=== PATIENT | female | born 1960 | race Caucasian/White ===

== ENCOUNTER → 2024-04-25 | Outpatient (BNVA) | payer MEDICAID, SELFPAY | END | disposition home or self-care (01) | PROVIDERS: PCP Nurse Practitioner Family; Referring Provider Nurse Practitioner Family; Visit Provider Urology | DX: Z09 Encounter for follow-up examination after completed treatment for conditions other than malignant neoplasm (principal); C55 Malignant neoplasm of uterus, part unspecified; Z92.3 Personal history of irradiation; I10 Essential (primary) hypertension; E03.9 Hypothyroidism, unspecified; E78.00 Pure hypercholesterolemia, unspecified; I48.91 Unspecified atrial fibrillation | CPT/HCPCS: 81003; 99212; G0463 ==

== ENCOUNTER 2024-04-30 02:50 | Emergency (ER) | payer MEDICAID, SELFPAY ==
[2024-04-30 02:54] VITALS: PULSE 61; RESP 18; O2SAT 98
[2024-04-30 02:57] VITALS: BMI 22.2
[2024-04-30 03:06] VITALS: BP 154/85; PULSE 64; RESP 16; TEMP 37.4; O2SAT 97
--- NOTE | 2024-04-30 03:50 | EDNOTE_ITS ---
ED Back Injury Pain RME/HPI General Chief Complaint: Back Pain/Injury Stated Complaint: BACK PAIN Time Seen by Provider: 04/30/24 03:39 Arrival date/time: 04/30/24 02:50 63F with history of papillary thyroid carcinoma s/p thyroidectomy 2018, with subsequent hypothyroidism, uterine cancer s/p hysterectomy and radiation therapy, HTN, afib, seizures, and chronic urinary retention presents to ED lower back pain and muscle tightness w/o fall/trauma. Patient states she also has a known lumbar fx pending specialist referral. Patient also states she's had a few days of dysuria, but denies fevers/chills. Patient had clean UA several days ago with urologist Dr. Muller. Limitations: no limitations Related Data Home Medications ?Medication ?Instructions ?Recorded ?Confirmed atorvastatin 20 mg tablet 20 mg PO HS 05/11/20 04/25/24 alprazolam 0.5 mg tablet (Xanax) 0.5 mg PO BID PRN Anxiety 01/14/23 04/25/24 benztropine 1 mg tablet 1 mg PO TID 01/14/23 04/25/24 levetiracetam 1,000 mg tablet 1,000 mg PO BID 01/14/23 04/25/24 losartan 100 mg tablet 100 mg PO QDAY 01/14/23 04/25/24 lumateperone 42 mg capsule 42 mg PO QDAY 01/14/23 04/25/24 (Caplyta) trazodone 50 mg tablet 50 mg PO HS 01/14/23 04/25/24 levothyroxine 112 mcg tablet 112 mcg PO 1XD 07/19/23 04/25/24 oxybutynin chloride 10 mg 10 mg PO QDAY 04/25/24 04/25/24 tablet,extended release 24 hr Previous Rx's ?Medication ?Instructions ?Recorded ferrous sulfate 325 mg (65 mg 325 mg PO .qod #30 tabs 07/29/23 iron) tablet pantoprazole 40 mg tablet,delayed 40 mg PO BID #60 tabs 08/03/23 release cephalexin 500 mg capsule 500 mg PO BID #6 caps 11/03/23 ciprofloxacin HCl 500 mg tablet 500 mg PO BID 10 days #20 tabs 04/30/24 (Cipro) Allergies Allergy/AdvReac Type Severity Reaction Status Date / Time ampicillin Allergy Severe Hives Verified 04/25/24 13:09 Penicillins Allergy Severe Hives Verified 04/25/24 13:09 Review of Systems Review of Systems Systems Reviewed: All systems reviewed, normal except as documented Constitutional Constitutional: Reports system reviewed and no additional complaints, except as documented, Denies fever(s) and Denies headache(s) ENT Ears, Nose, Mouth, and Throat: Denies disequilibrium and Denies headache(s) Cardiovascular Cardiovascular: Reports system reviewed and no additional complaints, except as documented, Denies chest pain and Denies dyspnea Respiratory Respiratory: Reports system reviewed and no additional complaints, except as do cumented, Denies cough and Denies dyspnea Gastrointestinal Gastrointestinal: Reports system reviewed and no additional complaints, except as documented, Denies abdominal pain, Denies nausea and Denies vomiting Genitourinary Genitourinary: Reports as per HPI and Reports dysuria Musculoskeletal Musculoskeletal: Reports as per HPI and Reports back pain Neurologic Neurologic: Reports system reviewed and no additional complaints, except as documented, Denies confusion, Denies disequilibrium and Denies headache(s) Psychiatric Psychiatric: Denies confusion Past Medical History Past Medical History NEUROLOGIC: Positive Neurological Disorders, Seizures, Epilepsy and Head Trauma CARDIAC: Positive Cardiac Disorders, Atrial Fibrillation, Hypercholesterolemia and Hypertension; Negative Angina or Congestive Heart Failure RESPIRATORY: Positive Asthma; Negative Chronic Obstructive Pulmonary Disease (COPD) GASTROINTESTINAL: Positive Gastrointestinal Disorders and Gall Bladder Disease GENITOURINARY: Negative Genitourinary Disorders or Renal Disease REPRODUCTIVE: Positive Previous Pregnancies; Negative Breast Cancer, Endometriosis or Pelvic Inflammatory Disease MUSCULOSKELETAL: Positive Musculoskeletal Disorders, Osteoporosis and Fractures ENT: Positive Head Trauma ENDOCRINE: Positive Endocrine Disorders and Hypothyroidism; Negative Diabetes Mellitus Type 1 or Diabetes Mellitus Type 2 HEMATOLOGIC: Negative Blood Disorders or Sickle Cell Disease PSYCHO/SOCIAL: Positive Schizophrenia, Bipolar Disorder, Depression and Anxiety OTHER HISTORY: Positive Blood Transfusions (07/30/2023), Radiation Therapy, Chicken Pox, Measles, Clostridium Difficile and Cancer; Negative Autoimmune Disease, Blood Transfusion Reaction, Anesthesia Reactions, Organ Transplant, MRSA or Breast Cancer Family History FAMILY HISTORY: Positive Family Respiratory Disorders, Family Cardiac Disorders and Family Cancer; Negative Family Psychiatric Problems, Family Gastrointestinal Problems, Family Surgery or Family Anesthesia Reaction Surgical History SURGICAL: Positive Thyroidectomy and Hysterectomy; Negative Cardiac Surgery, Endocrine Surgery, Ear Surgery, Abdominal Surgery, Nephrectomy, Joint Replacement, Neurologic Surgery, Mastectomy, Vasectomy or Organ Transplant Social History SMOKING STATUS: Never smoker ED Exam General Limitations: Present no limitations General appearance: Present alert and in no apparent distress Head Head exam: Present atraumatic Eye Eye exam: Present normal appearance, PERRL and EOMI ENT ENT exam: Present normal exam, normal oropharynx and mucous membranes moist Neck Neck exam: Present normal inspection, full ROM and trachea midline Chest Chest inspection: Present normal inspection and symmetric chest wall rise Respiratory Respiratory exam: Present normal lung sounds bilaterally Cardiovascular Cardiovascular exam: Present regular rate, normal rhythm and normal heart sounds Abdominal Exam Abdominal exam: Present soft and normal bowel sounds Extremities Exam Extremities exam: Present normal inspection and full ROM Back Exam Back exam: Present normal inspection and full ROM Neurological Exam Neurological exam: Present alert, oriented X3 and CN II-XII intact Psychiatric Psychiatric exam: Present normal affect and normal mood Skin Skin exam: Present warm, dry, intact and normal color Course Quality Measures none Orders Category Date Time Status Urinalysis, C/S if Indicated Stat Lab 04/30/24 03:45 Completed Urine Culture Stat Lab 04/30/24 03:45 Received CYCLObenzaPRINE [Flexeril] Med 04/30/24 03:39 Discontinued 5 mg PO X1 ONE Ciprofloxacin HCl [Ciprofloxacin] Med 04/30/24 04:35 Discontinued 500 mg PO X1 ONE Ketorolac Inj [Toradol Inj] Med 04/30/24 03:39 Discontinued 30 mg IM X1 ONE cefTRIAXone [Rocephin] 1,000 mg Med 04/30/24 04:18 Discontinued Lidocaine 1% 20 ml [Xylocaine 1% 20 ML] 2.1 ml IM X1 Vital Signs Vital signs: Vital Signs Temperature 99.4 F 04/30/24 03:06 Pulse Rate 64 04/30/24 03:06 Respiratory Rate 16 04/30/24 03:06 Blood Pressure 154/85 H 04/30/24 03:06 Pulse Oximetry (%) 97 04/30/24 03:06 Oxygen Delivery Method Room Air 04/30/24 03:06 O2 at 97% on RA and WNLs Back Pain / Injury MDM Narrative MDM Narrative:: 63F with history of papillary thyroid carcinoma s/p thyroidectomy 2018, with subsequent hypothyroidism, uterine cancer s/p hysterectomy and radiation therapy, HTN, afib, seizures, and chronic urinary retention presents to ED lower back pain and muscle tightness w/o fall/trauma. Patient states she also has a known lumbar fx pending specialist referral. Patient also states she's had a few days of dysuria, but denies fevers/chills. Patient had clean UA several days ago with urologist Dr. Muller. Physical exam reveals no CVA tenderness. Patient is afebrile, calm, and alert. UA suggests UTI. However, no fever and patient is sitting with no apparent distress reading something on her phone. Will cover for Pseudomonas given previously positive UC, albeit back in 2018. Patient data External records reviewed:: [facility] previous records Clinical information provided by:: patient Social determinants that could affect healthcare access:: none Patient has the following chronic illnesses:: history of papillary thyroid carcinoma s/p thyroidectomy 2018, with subsequent hypothyroidism, uterine cancer s/p hysterectomy and radiation therapy, HTN, afib, seizures, and chronic urinary retention How is presenting disease/condition affected by chronic disease/condition?: exacerbated by Evaluation data The following diagnostics were reviewed and interpreted by me:: lab results Lab and/or radiology exams considered but not ordered:: ordered Interpretation Summary: above Medications / Prescriptions Medications or Prescriptions considered but not ordered:: ordered Medication administrations:: Medication Administration History Discontinued Medications Ciprofloxacin (Ciprofloxacin Hcl 250 Mg Tablet) 500 mg PO X1 ONE Stop: 04/30/24 04:36 Ceftriaxone Sodium 1,000 mg/ (Lidocaine HCl 2.1 ml) 0 mg IM X1 ONE Stop: 04/30/24 04:19 Cyclobenzaprine HCl (Cyclobenzaprine 5 Mg Tablet) 5 mg PO X1 ONE Stop: 04/30/24 03:40 Last Admin: 04/30/24 04:03 Dose: 5 mg Documented By: BLAIRE Ketorolac Tromethamine (Ketorolac Inj 60 Mg/2 Ml Vial) 30 mg IM X1 ONE Stop: 04/30/24 03:40 Last Admin: 04/30/24 04:04 Dose: 30 mg Documented By: BLAIRE above Consultations Consultation(s) initiated? (list below): No Diagnosis Differential diagnosis back pain/injury: lumbar radiculopathy, sciatica, strain of lumbar region (fx), renal colic, pyelonephritis, thoracic back pain, AAA, discitis and other (UTI/pyelo) Most likely diagnosis given after review of the tests above:: lumbar fx and UTI Admission Indicated Admission indicated?: not indicated Admission Request Was there a request for admission?: No Disposition Plan Disposition Plan: Discharge Discharge Attestation Discharge Attestation: The patient and all family members were given an opportunity to ask questions and understood the discharge instructions. Discharge instructions specifically effects, indications for sooner follow up or return to the emergency department, and the expected course of current diagnosis. Patient condition: Stable Discharge Plan Plan Patient Disposition: HOME (Self Care) Disposition Comment: Stable Prescriptions/Referrals Prescriptions/Med Rec: New ciprofloxacin HCl [Cipro] 500 mg tablet 500 mg PO BID 10 Days Qty: 20 0RF No Action oxybutynin chloride 10 mg tablet extended release 24hr 10 mg PO QDAY atorvastatin 20 mg Tablet 20 mg PO HS alprazolam [Xanax] 0.5 mg Tablet 0.5 mg PO BID PRN (Reason: Anxiety) levetiracetam 1,000 mg tablet 1,000 mg PO BID trazodone 50 mg tablet 50 mg PO HS Patient Comments: TAKE 1 TABLET BY MOUTH EVERY NIGHT FOR SLEEP benztropine 1 mg tablet 1 mg PO TID Patient Comments: TAKE 1 TABLET BY MOUTH THREE TIMES A DAY losartan 100 mg tablet 100 mg PO QDAY Hold Instructions: Resume on 07/28/23. Resume if average SBP >140 and/or DBP >90 Patient Comments: TAKE 1 TABLET BY MOUTH IN THE MORNING BEFORE MEAL Caplyta 42 mg capsule 42 mg PO QDAY Patient Comments: TAKE 1 CAPSULE BY MOUTH EVERY DAY levothyroxine 112 mcg tablet 112 mcg PO 1XD ferrous sulfate 325 mg (65 mg iron) tablet 325 mg PO .qod Qty: 30 0RF pantoprazole 40 mg tablet,delayed release (DR/EC) 40 mg PO BID Qty: 60 0RF cephalexin 500 mg capsule 500 mg PO BID Qty: 6 0RF Referrals: Demetris Piña FNP [Primary Care Provider] - In 1 week Problem List Clinical Impression: Fracture of lumbar spine, UTI (urinary tract infection) Patient/Caregiver Discharge Instructions Additional Instructions: Please follow-up with PCP within 24-48 hours and return immediately if symptoms worsen. Print Language: Slovenian Stand Alone Forms: Patient Portal Info Letter NICKOLAS/MYNOR Supervising Physician NICKOLAS/MYNOR Supervising Physician: Dr. Richard
[2024-04-30 03:54] LABS: Collection Type, Urine Clean Catch; Squamous Epithelial Cell,Urine 0 /hpf (0-5)
[2024-04-30] MEDS: CYCLObenzaPRINE 5 MG TABLET PO (04:03)
[2024-04-30] MEDS: KETOROLAC INJ 60 MG/2 ML VIAL 30 MG IM (04:04)
[2024-04-30 04:10] LABS: Bacteria,Urine 3+; Bilirubin,Urine Negative (Negative); Blood,Urine 3+ (Negative); Glucose, Urine Negative (Negative); Ketones,Urine Negative (Negative); Leukocyte Esterase,Urine Positive (Negative); Nitrite,Urine Positive (Negative); PH,Urine 6.5 (5.0-7.0); Protein,Urine 3+ (Neg - Trace); RBC,Urine 533 /hpf (0-3); Specific Gravity,Urine 1.013 (1.001-1.035); Urobilinogen,Urine Negative mg/dL (0.0-1.0); WBC,Urine 3570 /hpf (0-5)
[2024-04-30 04:12] LABS: Clarity,Urine Turbid (Clear/Hazy); Color,Urine Yellow (Lt Yel-Yel); Culture Indicated,Urine Yes
[2024-04-30] MEDS: cefTRIAXone 1,000 MG, LIDOCAINE 1% 20 ML 2.1 ML IM (04:44)
[2024-04-30] MEDS: CIPROFLOXACIN HCL 250 MG TABLET 500 MG PO (04:45)
== END 2024-04-30 05:05 | disposition home or self-care (01) ==
PROVIDERS: Physician Assistant; Emergency Provider Emergency Medicine; PCP Nurse Practitioner Family
DX: M84.48XA Pathological fracture, other site, initial encounter for fracture (principal); N39.0 Urinary tract infection, site not specified
CPT/HCPCS: 81001; 87077; 87086; 87186; 96372; 99283; J0696; J1885; J3490; A9270

== ENCOUNTER 2024-05-10 17:59 | Emergency (ER) | payer MEDICAID, SELFPAY ==
[2024-05-10] VITALS (14 sets, daily range): BP systolic 146–199; BP diastolic 87–150; PULSE 80–132; RESP 14–29; TEMP 36.9–37.2; O2SAT 96–100; BMI 20.2
--- NOTE | 2024-05-10 18:20 | PD.EDSEIZ ---
ED Seizures RME/HPI General Chief Complaint: Seizure Stated Complaint: SEIZURES Time Seen by Provider: 05/10/24 18:18 Arrival date/time: 05/10/24 17:59 RME / HPI RME / HPI Narrative: DR. GONZALEZ MAIN ED EVALUATION: 63-year-old male with a history of iron deficiency anemia, seizure disorder, thyroid disease, GERD, high cholesterol, schizophrenia, history of encephalopathy, history of gallbladder disease presenting to the emergency department by ambulance with seizure 1 hour prior to arrival. Patient's been off her Keppra for the last 4 days because she ran out. No recent fevers or trauma.Maintained airway during the seizure and did not bite tongue. Did not urinate on her pants. This is similar to previous seizures in the past. Upon waking denies recent illnesses, fever, chest pain, shortness of breath, back pain, neck pain, paresthesias, weakness, other injuries, or other complaints. MD complaint: seizure Onset (ago): hour(s) Description of Episode: tonic-clonic movement and other (Triggered by strobe lights and the patient was at [employer] and got triggered by the lights in the ceiling) Duration of episode: 2 Witnessed: yes - by bystander Trauma: No Seizure History: known seizure disorder and history of withdrawal seizures Place: other Possible Precipitating Event: other (Likes) Associated symptoms: confusion Treatments prior to arrival: none Commercial Driving History Patient's occupation: None Related Data Home Medications ?Medication ?Instructions ?Recorded ?Confirmed atorvastatin 20 mg tablet 20 mg PO HS 05/11/20 04/25/24 alprazolam 0.5 mg tablet (Xanax) 0.5 mg PO BID PRN Anxiety 01/14/23 04/25/24 benztropine 1 mg tablet 1 mg PO TID 01/14/23 04/25/24 levetiracetam 1,000 mg tablet 1,000 mg PO BID 01/14/23 04/25/24 losartan 100 mg tablet 100 mg PO QDAY 01/14/23 04/25/24 lumateperone 42 mg capsule 42 mg PO QDAY 01/14/23 04/25/24 (Caplyta) trazodone 50 mg tablet 50 mg PO HS 01/14/23 04/25/24 levothyroxine 112 mcg tablet 112 mcg PO 1XD 07/19/23 04/25/24 oxybutynin chloride 10 mg 10 mg PO QDAY 04/25/24 04/25/24 tablet,extended release 24 hr Previous Rx's ?Medication ?Instructions ?Recorded ferrous sulfate 325 mg (65 mg 325 mg PO .qod #30 tabs 07/29/23 iron) tablet pantoprazole 40 mg tablet,delayed 40 mg PO BID #60 tabs 08/03/23 release cephalexin 500 mg capsule 500 mg PO BID #6 caps 11/03/23 levetiracetam 1,000 mg tablet 1,000 mg PO BID 14 days #28 tabs 05/11/24 (Keppra) Allergies Allergy/AdvReac Type Severity Reaction Status Date / Time ampicillin Allergy Severe Hives Verified 04/25/24 13:09 Penicillins Allergy Severe Hives Verified 04/25/24 13:09 Review of Systems Review of Systems Systems Reviewed: All systems reviewed, normal except as documented Narrative Review of Systems: GEN: No fever, no chills, no weight loss EYES: No discharge, no visual changes, no pain HEENT: No ear pain, no congestion, no sore throat PULM: No shortness of breath, no cough, no congestion CV: No chest pain, no dyspnea on exertion, no palpitations GI: No nausea, no vomiting, no diarrhea, no pain, no constipation : No frequency, no urgency and no dysuria MUSC/SKEL: No joint pain, no back pain SKIN: No rash PSYCH: No hallucinations, no depression HEME/LYMPH: No easy bleeding or bruising tendencies NEURO: No weakness, no headache, + seizure Past Medical History Past Medical History NEUROLOGIC: Positive Neurological Disorders, Seizures, Epilepsy and Head Trauma CARDIAC: Positive Cardiac Disorders, Atrial Fibrillation, Hypercholesterolemia and Hypertension RESPIRATORY: Positive Asthma GASTROINTESTINAL: Positive Gastrointestinal Disorders and Gall Bladder Disease REPRODUCTIVE: Positive Previous Pregnancies MUSCULOSKELETAL: Positive Musculoskeletal Disorders, Osteoporosis and Fractures ENT: Positive Head Trauma ENDOCRINE: Positive Endocrine Disorders and Hypothyroidism PSYCHO/SOCIAL: Positive Schizophrenia, Bipolar Disorder, Depression and Anxiety OTHER HISTORY: Positive Blood Transfusions, Radiation Therapy, Chicken Pox, Measles, Clostridium Difficile and Cancer Family History FAMILY HISTORY: Positive Family Respiratory Disorders, Family Cardiac Disorders and Family Cancer Surgical History SURGICAL: Positive Thyroidectomy and Hysterectomy Social History SMOKING STATUS: Never smoker SUBSTANCE USE: does not use ALCOHOL: Never ED Exam Narrative Physical exam: General: Non-toxic, well appearing, in no acute distress, and appears state age and well developed and well nourished. Vital signs: Normal. Head: Normocephalic and atraumatic. Eyes: Aproptotic, extraocular movements intact, and pupils equally round and reactive to light. Nose: Nares without evidence of rhinorrhea. Mouth: No tongue lacerations. Neck: Supple without menigismus without lympadenopathy or tenderness. Heart: Regular rate and rhythm without murmur, gallops, or rubs. Lungs: Clear to auscultation without wheezing, rales, or rhonchi. Abdomen: Soft, nontender, no masses, and not distended. Back: No costovertebral angle tenderness. Neurologic: Alert and oriented to person, place, and time. Cranial nerves 2-12 grossly intact. Sensation to light touch intact in all extremities. Strength 5/5 bilaterally. Negative drift and romberg. No dysdiadochokinesia. Normal finger to nose, heel to franklin, gait, and heel to toe. Gait normal. Extremities: no cyanosis or edema. No trauma. Skin: no rashes, ecchymosis, or lesions. NIH STROKE SCALE 1a. Level of Consciousness (Alert, drowsy, etc) [0 = Alert; 1 = Drowsy; 2 = Stuporous; 3 = Coma] = 0 1b. LOC Questions: (Month, age) [0 = Answers both correctly; 1 = Answers one correctly; 2 = Incorrect] = 0 1c. LOC Commands (Open/ close eyes, make fist/ let go) [0 = Obeys both correctly; 1 = Obeys one correctly; 2 = Incorrect] = 0 2. Best Gaze (Eyes open - patient follows examiner?s finger or face) [0 = Normal; 1 = Partial gaze palsy; 2 = Forced deviation] = 0 3. Visual Cruz (Introduce visual stimulus/ threat to pt?s visual field quadrants) [0 = No visual loss; 1 = Partial Hemianopia; 2 = Complete Hemianopia; 3 = Bilateral Hemianopia (Blind)] = 0 4. Facial Paresis (Show teeth, raise eyebrows and squeeze eyes shut) [0 = Normal; 1 = Minor; 2 = Partial; 3 = Complete] = 0 5a. Left Arm Motor Function (Elevate arm to 90 degrees if patient is sitting, 45 degrees if supine) [0 = No drift; 1 = Drift; 2 = Can?t resist gravity; 3 = No effort against gravity; 4 No movement; X = Untestable (Joint fusion or limb amp)] = 0 5b. Right Arm Motor Function (Elevate arm to 90 degrees if patient is sitting, 45 degrees if supine) [0 = No drift; 1 = Drift; 2 = Can?t resist gravity; 3 = No effort against gravity; 4 = No movement; X = Untestable (Joint fusion or limb amp)] = 0 6a. Left Leg Motor Function (Elevate 30 degrees with patient supine) [0 = No drift; 1 = Drift; 2 = Can?t resist gravity; 3 = No effort against gravity; 4 = No movement; X = Untestable (Joint fusion or limb amp)] = 0 6b.? Right Leg Motor Function (Elevate 30 degrees with patient supine) [0 = No drift; 1 = Drift; 2 = Can?t resist gravity; 3 = No effort against gravity; 4 = No movement; X = Untestable (Joint fusion or limb amp)] = 0 7. Limb Ataxia (Finger-nose, heel down franklin) [0 = No ataxia; 1 = Present in one limb; 2 = Present in two limbs] = 0 8. Sensory (Pin prick to face, arm, trunk, and leg; compare side to side) [0 = Normal; 1 = Partial loss; 2 = Severe loss] = 0 9. Best Language (Name item, describe a picture and read sentences) [0 = No aphasia; 1 = Mild to moderate aphasia; 2 = Severe aphasia; 3 = Mute] = 0 10. Dysarthria (Evaluate speech clarity by patient repeating listed words) [0 = Normal articulation; 1 = Mild to moderate slurring of words; 2 = Near to unintelligible or worse; X = Intubated or other physical barrier] = 0 11. Extinction and Inattention (Use information form prior testing to identify neglect or double simultaneous stimuli testing) [0 = No neglect; 1 = Partial neglect; 2 = Complete neglect] = 0 TOTAL SCORE = 0 Course Course Course Narrative: 2103: Stroke alert initiated. Orders made at this time are congruent stroke protocol. OBSERVATION NOTE: The patient was placed in ED observation care at 05/10/2024 at 2150 hours. The patient was placed in ED observation care, pending MRI in the morning. The patients past medical history, social history, and family history were reviewed. The plan of care will include serial examinations. Quality Measures none Orders Category Date Time Status MRI Screening NOW Care 05/10/24 21:43 Active MRI Screening NOW Care 05/10/24 21:43 Active NIH Stroke Scale now Care 05/10/24 21:03 Active NPO NOW Care 05/10/24 21:03 Active Nurse Swallow Screen x1 Care 05/10/24 21:03 Active Consult to Neurology / Tele-Neurology Routine Cons 05/10/24 21:[address] angio stroke protocol Stat Exams 05/10/24 21:[address] head/brain wo con Stat Exams 05/10/24 18:[address] stroke protocol Stat Exams 05/10/24 21:03 Ordered MR head/brain wo con Stat Exams 05/10/24 Ordered CBC Stat Lab 05/10/24 18:03 Completed CMP [Comprehensive Metabolic Panel] Stat Lab 05/10/24 18:03 Completed Drug Screen,Urine Stat Lab 05/10/24 20:04 Completed Prothrombin Time with INR Stat Lab 05/10/24 21:38 Completed Urinalysis Stat Lab 05/10/24 20:04 Completed Famotidine Inj [Pepcid Inj] Med 05/11/24 04:16 Discontinued 20 mg IVP X1 ONE Ketorolac Inj [Toradol Inj] Med 05/11/24 04:32 Discontinued 30 mg IVP X1 ONE LORazepam [Ativan Inj] Med 05/11/24 04:32 Discontinued 2 mg IVP X1 ONE Ondansetron Inj [Zofran Inj] Med 05/10/24 21:03 Active 4 mg IV Q4HR PRN Sodium Chloride 0.9% 1000 ml [Ns] 1,000 ml Med 05/10/24 21:46 Discontinued IV 999 mls/hr hydrALAZINE INJ [Apresoline Inj] Med 05/10/24 18:25 Discontinued 20 mg IV X1 ONE levETIRAcetam INJ [Keppra Inj] Med 05/10/24 18:24 Discontinued 1,000 mg IVP X1 ONE levETIRAcetam [Keppra] Med 05/11/24 04:35 Discontinued 1,000 mg PO X1 ONE levETIRAcetam [Keppra] Med 05/10/24 21:37 Discontinued 500 mg PO X1 ONE Oxygen Delivery NOW RT 05/10/24 21:03 Active Vital Signs Vital signs: Vital Signs Temperature 99.0 F 05/10/24 18:08 Pulse Rate 97 05/10/24 18:08 Respiratory Rate 18 05/10/24 18:08 Blood Pressure 188/109 H 05/10/24 18:08 Pulse Oximetry (%) 100 05/10/24 18:08 Oxygen Delivery Method Room Air 05/10/24 18:08 Seizure MDM Narrative MDM Narrative:: Differential diagnosis includes seizure disorder, trauma, head bleed, electrolyte abnormality, drug use, exacerbation of her seizures from the external lighting. Discussed with Teleneuro, who reviewed the the CT scan. She does not believe that the patient has any type of pontine symptoms and the CT appears more to have microvascular changes and she does not agree with the fact that this patient has an infarct. Recommends patient can get an additional 500 mg of Keppra, and have the patient follow-up as an outpatient Safety net established and ECG retrieved showing no evidence of STEMI or other acute findings. CT Head is obtained The patient was given strict return precautions and was comfortable with the plan. Return to the ER for headache, fever, difficulty walking, or other concerns. Follow up in your primary care physician?s or neurologist's office within the next 2 to 4 days for reevaluation Jami Cabello am scribing for and in the presence of Dr. Gonzalez. Patient data External records reviewed:: [facility] previous records (Reviewed last ED visit dated 04/30/24, discharged with the following: Fracture of lumbar spine.) Clinical information provided by:: patient and EMS Social determinants that could affect healthcare access:: none Patient has the following chronic illnesses:: Iron deficiency anemia, seizure disorder, thyroid disease, GERD, high cholesterol, schizophrenia, history of encephalopathy, history of gallbladder disease. How is presenting disease/condition affected by chronic disease/condition?: caused by Evaluation data The following diagnostics were reviewed and interpreted by me:: lab results and radiology exam(s) Lab and/or radiology exams considered but not ordered:: none Interpretation Summary: See above under MDM narrative. RADIOLOGY Procedure(s): CT head/brain wo con Accession Number(s): [id number] cc: David Morrell MD; Demetris Piña; Roro Gonzalez MD~ Examination: CT brain head without contrast. 2-D sagittal coronal reconstructions Date and time of exam:May 10, 2024 1904 hrs. Indications: Onset headaches dizziness today post seizure, patient fell, patient found down unconscious on the ground July 18, 2023 CTDI: vol (mGy):43.5 DLP: (mGycm):800 Technique: Multiple CT axial sections of the brain have been obtained, 5 mm slice thickness. Contrast has not been administered. 2-D sagittal, coronal reconstructions have been obtained Low dose protocols were performed. One or more of the following dose reduction techniques were used; automated exposure control, adjustment of the mA and/or KV according to patient size, use of iterative reconstruction technique. Findings: Age indeterminate right brainstem infarcts, pontine level, axial image 63 No significant ventricular enlargement. Intra-axial or extra-axial hemorrhage density is not seen. No mass effect or midline shift Basal cisterns are not remarkable. Fourth ventricle is midline. Cranial vault intact. Posterior right scalp hematoma Impression: Negative for acute hemorrhage, mass effect or midline shift Age indeterminate brainstem infarct Consider brain MRI follow-up, stroke protocol Dictated By: David Morrell MD Medications / Prescriptions Medications or Prescriptions considered but not ordered:: none Medication administrations:: Medication Administration History Ondansetron HCl (Ondansetron Inj 2 Mg/Ml Inj 2 Ml) 4 mg IV Q4HR PRN PRN Reason: NAUSEA OR VOMITING Stop: 06/09/24 21:02 Last Admin: 05/10/24 21:49 Dose: 4 mg Documented By: CHAO Discontinued Medications Famotidine (Famotidine Inj 10 Mg/Ml Vial 2 Ml) 20 mg IVP X1 ONE Stop: 05/11/24 04:17 Last Admin: 05/11/24 04:18 Dose: 20 mg Documented By: MANJEET Hydralazine HCl (Hydralazine Inj 20 Mg/Ml Vial) 20 mg IV X1 ONE Stop: 05/10/24 18:26 Last Admin: 05/10/24 19:21 Dose: 20 mg Documented By: MANJEET Sodium Chloride (Ns) 1,000 mls @ 999 mls/hr IV .Q1H1M ONE Stop: 05/10/24 22:46 Last Infusion: 05/11/24 00:00 Dose: Infused Documented By: Admin: 05/10/24 21:49 Dose: 999 mls/hr Documented By: CHAO Ketorolac Tromethamine (Ketorolac Inj 30 Mg/Ml Vial) 30 mg IVP X1 ONE Stop: 05/11/24 04:33 Last Admin: 05/11/24 04:41 Dose: 30 mg Documented By: MANJEET Levetiracetam (Levetiracetam Inj 100 Mg/Ml Vial 5ml) 1,000 mg IVP X1 ONE Stop: 05/10/24 18:25 Last Admin: 05/10/24 19:12 Dose: 1,000 mg Documented By: MANJEET Levetiracetam (Levetiracetam 250 Mg Tablet) 500 mg PO X1 ONE Stop: 05/10/24 21:38 Last Admin: 05/10/24 21:48 Dose: 500 mg Documented By: CHAO Levetiracetam (Levetiracetam 250 Mg Tablet) 1,000 mg PO X1 ONE Stop: 05/11/24 04:36 Lorazepam (Lorazepam 2 Mg/Ml Vial) 2 mg IVP X1 ONE Stop: 05/11/24 04:33 Last Admin: 05/11/24 04:41 Dose: 2 mg Documented By: MANJEET see above Consultations Consultation(s) initiated? (list below): Yes Consultation #1 (Physician, Specialty, Details): Stroke alert called, for possible abnormal CT interpretation however patient does have normal neuro exam. She is in the 3-hour window. Time: 21:04 Consultation #2 (Physician, Specialty, Details): Discussed with Teleneuro, who reviewed the the CT scan. She does not believe that the patient has any type of pontine symptoms and the CT appears more to have microvascular changes and she does not agree with the fact that this patient has an infarct. Recommends patient can get an additional 500 mg of Keppra, and have the patient follow-up as an outpatient Diagnosis Seizure Differential Diagnosis: other (seizure disorder, trauma, head bleed, electrolyte abnormality, drug use, exacerbation of her seizures from the external lighting) Most likely diagnosis given after review of the tests above:: see below Admission Indicated Admission indicated?: not indicated Admission Request Was there a request for admission?: No Disposition Plan Disposition Plan: other (specify) (Signed out to the next oncoming provider pending MRI in the AM.) Critical Care Time Critical Care Time Critical Care Time: Yes Total Critical Care Time (min.): 30 Attestation: The high probability of sudden, clinically significant deterioration in the patient?s condition required the highest level of my preparedness to intervene urgently. The services I provided to this patient were to treat and/or prevent clinically significant deterioration. Services included the following: chart data review, reviewing nursing notes and/or old charts, documentation time, safety and health consultant collaboration regarding findings and treatment options, medication orders and management, direct patient care, vital sign assessments and ordering, interpreting and reviewing diagnostic studies and lab tests. Aggregate critical care time includes only time during which I was engaged in work directly related to the patient?s care, as described above, whether at bedside or elsewhere in the Emergency Department. It did not include time spent performing other reported procedures or the services of residents, students, nurses or physician assistants. Discharge Plan Plan Patient condition on transfer: Stable Prescriptions/Referrals Prescriptions/Med Rec: New levetiracetam [Keppra] 1,000 mg tablet 1,000 mg PO BID 14 Days Qty: 28 0RF No Action oxybutynin chloride 10 mg tablet extended release 24hr 10 mg PO QDAY atorvastatin 20 mg Tablet 20 mg PO HS alprazolam [Xanax] 0.5 mg Tablet 0.5 mg PO BID PRN (Reason: Anxiety) levetiracetam 1,000 mg tablet 1,000 mg PO BID trazodone 50 mg tablet 50 mg PO HS Patient Comments: TAKE 1 TABLET BY MOUTH EVERY NIGHT FOR SLEEP benztropine 1 mg tablet 1 mg PO TID Patient Comments: TAKE 1 TABLET BY MOUTH THREE TIMES A DAY losartan 100 mg tablet 100 mg PO QDAY Hold Instructions: Resume on 07/28/23. Resume if average SBP >140 and/or DBP >90 Patient Comments: TAKE 1 TABLET BY MOUTH IN THE MORNING BEFORE MEAL Caplyta 42 mg capsule 42 mg PO QDAY Patient Comments: TAKE 1 CAPSULE BY MOUTH EVERY DAY levothyroxine 112 mcg tablet 112 mcg PO 1XD ferrous sulfate 325 mg (65 mg iron) tablet 325 mg PO .qod Qty: 30 0RF pantoprazole 40 mg tablet,delayed release (DR/EC) 40 mg PO BID Qty: 60 0RF cephalexin 500 mg capsule 500 mg PO BID Qty: 6 0RF Problem List Clinical Impression: Seizure disorder, Acute dehydration, Hx of medication noncompliance Patient/Caregiver Discharge Instructions Education Materials: Treating Epilepsy: Medicines, Dehydration Additional Instructions: Please take your seizure medications as directed. Follow-up with your primary care physician as scheduled tomorrow. I have written you dosages for your seizure medication please take as directed. Return to the emergency department worsening symptoms or any other concerns Print Language: British
--- NOTE | 2024-05-10 18:24 | XR_ITS ---
Examination: CT brain head without contrast. 2-D sagittal coronal reconstructions Date and time of exam:May 10, 2024 1904 hrs. Indications: Onset headaches dizziness today post seizure, patient fell, patient found down unconscious on the ground July 18, 2023 CTDI: vol (mGy):43.5 DLP: (mGycm):800 Technique: Multiple CT axial sections of the brain have been obtained, 5 mm slice thickness. Contrast has not been administered. 2-D sagittal, coronal reconstructions have been obtained Low dose protocols were performed. One or more of the following dose reduction techniques were used; automated exposure control, adjustment of the mA and/or KV according to patient size, use of iterative reconstruction technique. Findings: Age indeterminate right brainstem infarcts, pontine level, axial image 63 No significant ventricular enlargement. Intra-axial or extra-axial hemorrhage density is not seen. No mass effect or midline shift Basal cisterns are not remarkable. Fourth ventricle is midline. Cranial vault intact. Posterior right scalp hematoma Impression: Negative for acute hemorrhage, mass effect or midline shift Age indeterminate brainstem infarct Consider brain MRI follow-up, stroke protocol
[2024-05-10 18:50] LABS: Basophils % (Auto) 0 % (0-2.5); Eosinophils # (Auto) 0.1 Thou/mm3 (0.0-0.5); Eosinophils % (Auto) 1 % (0-10); Hematocrit 34.1 % (36.0-46.0); Hemoglobin 12.3 g/dL (12.0-16.0); Immature Granulocytes % (Auto) 0 % (0-0); Immature Granulocytes Auto 0.03 Thou/mm3 (0.00-0.00); Lymphocytes # (Auto) 4.5 Thou/mm3 (1.0-4.8); Lymphocytes % (Auto) 46 % (10-50); Mean Corpuscular HGB Conc 36.1 g/dl (31.0-37.0); Mean Corpuscular Hemoglobin 33.5 pg (25.0-35.0); Mean Corpuscular Volume 93 fL (80-100); Monocytes # (Auto) 0.8 Thou/mm3 (0.0-0.8); Monocytes % (Auto) 8 % (0-12); Neutrophils # (Auto) 4.4 Thou/mm3 (1.8-7.7); Neutrophils % (Auto) 45 % (37-80); Nucleated Red Blood Cell % 0 /100 WBC (0); Platelet Count 297 Thou/mm3 (140-440); RDW Standard Deviation 39.3 fL (36.4-46.3); Red Blood Count 3.67 Miln/mm3 (4.00-5.20); White Blood Count 9.8 Thou/mm3 (3.6-11.0)
[2024-05-10 19:11] LABS: Alanine Aminotransferase 25 U/L (10-49); Albumin, Serum 4.9 gm/dL (3.4-4.8); Alkaline Phosphatase 128 U/L (46-116); Anion Gap 12 (7-16); Aspartate Amino Transferase 28 U/L (0-34); BUN/Creatinine Ratio 11 Ratio (12-20); Bilirubin,Total 0.3 mg/dL (0.3-1.2); Blood Urea Nitrogen 19 mg/dL (9-23); Calcium 9.2 mg/dL (8.3-10.6); Calcium (Corrected) 9.2 mg/dL (8.5-10.1); Carbon Dioxide 18.7 mMol/L (20.0-31.0); Chloride 102 mMol/L (98-107); Creatinine (Component) 1.7 mg/dL (0.6-1.3); Estimated Creatinine Clearance 22.8 mL/min (>60); Globulin 2.5 gm/dL (2.3-3.5); Glucose 107 mg/dL (74-106); Osmolality,Calculated 268 (275-295); Potassium 3.3 mMol/L (3.4-5.1); Sodium 133 mMol/L (136-145); Total Protein 7.4 gm/dL (5.7-8.2); eGFR 33 See Note
[2024-05-10] MEDS: levETIRAcetam INJ 100 MG/ML VIAL 5ML 1000 MG IVP (19:12)
[2024-05-10] MEDS: hydrALAZINE INJ 20 MG/ML VIAL IV (19:21)
[2024-05-10 20:27] LABS: Collection Type, Urine Voided
[2024-05-10 20:47] LABS: Bilirubin,Urine Negative (Negative); Blood,Urine Negative (Negative); Clarity,Urine Turbid (Clear/Hazy); Color,Urine Lt-Yellow (Lt Yel-Yel); Glucose, Urine Trace (Negative); Hyaline Casts,Urine < 1 /hpf (0-1); Ketones,Urine Negative (Negative); Leukocyte Esterase,Urine Positive (Negative); Nitrite,Urine Negative (Negative); Protein,Urine Trace (Neg - Trace); RBC,Urine 5 /hpf (0-3); Specific Gravity,Urine 1.014 (1.001-1.035); Squamous Epithelial Cell,Urine 6 /hpf (0-5); Urobilinogen,Urine Negative mg/dL (0.0-1.0); WBC,Urine 11 /hpf (0-5)
[2024-05-10 20:54] LABS: Amphetamine/Methamp Scrn,U Negative (Negative); Barbiturate Screen,Urine Negative (Negative); Benzodiazepines Screen,Urine Negative (Negative); Benzoylecgonine Screen, Ur Negative (Negative); Fentanyl Screen,Urine Positive (Negative); Opiate Screen,Urine Negative (Negative); THC Screen,Urine Positive (Negative)
--- NOTE | 2024-05-10 21:07 | PC.NURSE ---
stroke alert consult case # [id number]
--- NOTE | 2024-05-10 21:41 | ESCONSULT_ITS ---
Tele Neuro Consultation Consultation Date 05/10/24 Most Recent Vital Signs Last Vital Signs Temp 99.0 F 05/10/24 18:08 Pulse 125 H 05/10/24 20:45 Resp 20 05/10/24 20:45 BP 146/97 H 05/10/24 20:45 Pulse Ox 100 05/10/24 20:45 O2 Del Method Room Air 05/10/24 20:45 Consultation Narrative [facility] Tele[facility]urology Consult [facility] Patient Name:???Ara Tan Date of :???1960 Identification Number:??? Date of Service:???05/10/2024 21:05:24 Diagnosis:?G40.89 - Other seizures Impression/plan: ?Ms. Tan is a 63-year-old female with HLD, seizures on Keppra 1g BID, schizophrenia, and bipolar 1 who presented after a witnessed generalized tonic- clonic seizure in the setting of being without Keppra for several days. ? ?Patient is now back to her baseline with a reassuringly normal neurologic exam. She denies headaches, vision changes, new weakness, numbness, changes in speech, dysarthria, and dysphagia. She denies recent fevers/chills or infectious symptoms. ? ?Patient's presentation most consistent with breakthrough seizure due to missed Keppra. Recommend 1.5 kg Keppra load IV in the ER and prescription for 1g Keppra BID maintenance until she can get a refill from her outpatient neurologist. ? ?[facility] radiology read with age indeterminate infarct of the tho, however, on personal review the ill defined hypodensities of the tho appear more consistent with chronic microvascular changes and patient denies symptoms currently or in the past that would be consistent with a prior pontine infarct. Recommend outpatient neurology follow-up with outpatient MRI brain wo contrast for further characterization. Given no acute symptoms, no further emergent inpatient work-up indicated. Discussed stroke signs and symptoms and when to return to the ER. ? ?Recommend follow-up with PCP within 1 week of discharge and neurology within 2 weeks. Sign Out: ? Discussed with Emergency Department Provider Advanced Imaging:Advanced Imaging Deferred because: Stroke not suspected with clinical presentation and exam Metrics: Last Known Well: 05/10/2024 21:20:14 Dispatch Time: 05/10/2024 21:04:33 Arrival Time: 05/10/2024 17:59:00 Initial Response Time: 05/10/2024 21:07:00Symptoms: seizure. Initial patient interaction: 05/10/2024 21:07:00 NIHSS Assessment Completed: 05/10/2024 21:12:26Patient is not a candidate for Thrombolytic. Thrombolytic Medical Decision: 05/10/2024 21:13:00Patient was not deemed candidate for Thrombolytic because of following reasons: breakthrough seizure. CT head showed no acute hemorrhage or acute core infarct. Primary Provider Notified of Diagnostic Impression and Management Plan on: 21:35:07 History of Present Illness:Patient is a 63 year old Female. Patient was brought by private transportation with symptoms of seizure. Ms. Tan is a 63-year-old female with HLD, seizures on Keppra 1g BID, schizophrenia, and bipolar 1 who presented after a witnessed generalized tonic- clonic seizure. Patient states that she was feeling fine today and she was shopping with her sister. A bystander heard her fall and witnessed her having generalized shaking on the ground. This lasted ~2 minutes and resolved. She is now back to her baseline. She has been out of her Keppra for several days. She denies recent fever/chills, infectious symptoms. No headaches or vision changes. No new weakness, numbness, changes in speech or swallowing. ? Past Medical History: ?Hypertension ?Hyperlipidemia Medications: No Anticoagulant use? No Antiplatelet use Reviewed EMR for current medications Allergies:? Reviewed Social History: Drug Use: No Family History: There is no family history of premature cerebrovascular disease pertinent to this consultation ROS : 14 Points Review of Systems was performed and was negative except mentioned in HPI. Past Surgical History: There Is No Surgical History Contributory To Today?s Visit ? Examination: BP(146/97),?Pulse(125),?Blood Glucose(94) 1A: Level of Consciousness - Alert; keenly responsive?+ 0 1B: Ask Month and Age - Both Questions Right?+ 0 1C: Blink Eyes & Squeeze Hands - Performs Both Tasks?+ 0 2: Test Horizontal Extraocular Movements - Normal?+ 0 3: Test Visual Curz - No Visual Loss?+ 0 4: Test Facial Palsy (Use Grimace if Obtunded) - Normal symmetry?+ 0 5A: Test Left Arm Motor Drift - No Drift for 10 Seconds?+ 0 5B: Test Right Arm Motor Drift - No Drift for 10 Seconds?+ 0 6A: Test Left Leg Motor Drift - No Drift for 5 Seconds?+ 0 6B: Test Right Leg Motor Drift - No Drift for 5 Seconds?+ 0 7: Test Limb Ataxia (FNF/Heel-Jacques) - No Ataxia?+ 0 8: Test Sensation - Normal; No sensory loss?+ 0 9: Test Language/Aphasia - Normal; No aphasia?+ 0 10: Test Dysarthria - Normal?+ 0 11: Test Extinction/Inattention - No abnormality?+ 0 NIHSS Score:?0 Pre-Morbid Modified Maged Scale:2 Points = Slight disability; unable to carry out all previous activities, but able to look after own affairs without assistance Spoke with :?Carlos LINK This consult was conducted in real time using interactive audio and video technology. Patient was informed of the technology being used for this visit and agreed to proceed. Patient located in hospital and provider located at home/office setting. Patient is being evaluated for possible acute neurologic impairment and high probability of imminent or life-threatening deterioration. I spent total of 45 minutes providing care to this patient, including time for face to face visit via telemedicine, review of medical records, imaging studies and discussion of findings with providers, the patient and/or family. Dr Isaura Bloom [facility] For Inpatient follow-up with [facility] physician please call [facility] at . As we are not an outpatient service for any post hospital discharge needs please contact the hospital for assistance. If you have any questions for the [facility] physicians or need to reconsult for clinical or diagnostic changes please contact us via [facility] at . ?
[2024-05-10] MEDS: levETIRAcetam 250 MG TABLET 500 MG PO (21:48)
[2024-05-10] MEDS: ONDANSETRON INJ 2 MG/ML INJ 2 ML 4 MG IV (21:49)
[2024-05-10] MEDS: SODIUM CHLORIDE 0.9% 1000 ML 1,000 ML 999 ML IV (21:49)
[2024-05-10 22:31] LABS: Prothrombin Time 10.9 Seconds (9.0-12.2)
[2024-05-11] VITALS (12 sets, daily range): BP systolic 138–180; BP diastolic 68–116; PULSE 83–120; RESP 16–26; TEMP 36.7–37.7; O2SAT 97–100
[2024-05-11] MEDS: FAMOTIDINE INJ 10 MG/ML VIAL 2 ML 20 MG IVP (04:18)
[2024-05-11] MEDS: KETOROLAC INJ 30 MG/ML VIAL IVP (04:41)
[2024-05-11] MEDS: LORazepam 2 MG/ML VIAL IVP (04:41)
--- NOTE | 2024-05-11 07:06 | PD.EDADDENDU ---
Emergency Room Addendum Addendum Narrative: 0600 Care assumed by previous shift provider. Past medical, surgical, social and family history reviewed. Vitals and home medications reviewed. Results and treatment plan discussed. I will assume the care of the patient at this time and will follow the patient, pending final disposition. Ms. Tan has a history of substance use, and prescription drug use, epilepsy, and psychiatric illness, who presented last night to the emergency department after having a breakthrough seizure. She admits to noncompliance with her Keppra for the last week. Due to her seizure she underwent a stroke alert via the previous shift with head CT showing no acute findings. There was a discrepancy between readings on the brainstem area of the head CT where radiology raises concerns for possible age-indeterminate ischemic area, however through the stroke alert process, teleneurology feels that it is more consistent with microvascular changes and can be followed up with an MRI as an outpatient. Patient was signed over to me pending an MRI. I reviewed these results with the patient, she advises that she sees Dr. Jaimes regularly for his seizures and she should be able to follow-up with Dr. Jaimes as an outpatient and for the possibility of this MRI. Another consideration is the patient does take Xanax regularly, she does also admit to running out of her Xanax in addition to her seizure medicines. On my encounter patient has no abnormal vital signs, no tachycardia, no gross tremors, I do not feel yesterday seizure is due to a benzodiazepine withdrawal. This is more consistent with noncompliance with her antiepileptics. Patient is otherwise resting comfortably, and states she lives in an apartment just a [place] streets down and prefer discharge. At this point I do not feel she needs an MRI in the emergency department and can be discharged to follow-up with her neurologist, Dr Jaimes. We reviewed all all results, analysis, treatment plan and patient was amenable to discharge. Strict return precautions were reviewed and patient was discharged in stable condition.
--- NOTE | 2024-05-11 08:23 | PC.NURSE ---
Pt's daughter, Ike, calld by this RN at this time and notified that pt left a yellow an red ring. Per Ike, will come pick it up soon.
== END 2024-05-11 07:31 | disposition home or self-care (01) ==
PROVIDERS: Emergency Medicine; Emergency Provider Emergency Medicine; PCP Nurse Practitioner Family
DX: G40.909 Epilepsy, unspecified, not intractable, without status epilepticus (principal); T50.906A Underdosing of unspecified drugs, medicaments and biological substances, initial encounter; Z91.148 Patient's other noncompliance with medication regimen for other reason
CPT/HCPCS: 36415; 70450; 80053; 80307; 81001; 85025; 85610; 96361; 96374; 96375; 99291; J0360; J1885; J1953; J2060; J2405; J3490; J7030; A9270

== ENCOUNTER 2024-09-03 23:47 | Emergency (ER) | payer MEDICARE, MEDICAID, SELFPAY ==
[2024-09-03 23:50] VITALS: BMI 19.5
[2024-09-04 00:04] VITALS: BP 159/99; PULSE 68; RESP 18; TEMP 36.9; O2SAT 95
--- NOTE | 2024-09-04 00:13 | PD.EDRME ---
Rapid Medical Screening Exam RME Arrival date/time: 09/03/24 23:47 64 year old female present to ED for c/o ongoing abd pain, diarrhea, worsen today I have greeted and performed a focused initial assessment of this patient. A comprehensive ED assessment and evaluation of the patient, analysis of all test results, and completion of the medical decision making process will be conducted by additional ED providers. Chief Complaint: Abdominal Pain Time Seen by Provider: 09/03/24 23:52 Vital signs: Vital Signs Temperature 98.5 F 09/04/24 00:04 Pulse Rate 68 09/04/24 00:04 Respiratory Rate 18 09/04/24 00:04 Blood Pressure 159/99 H 09/04/24 00:04 Pulse Oximetry (%) 95 09/04/24 00:04 Oxygen Delivery Method Room Air 09/04/24 00:04
[2024-09-04 00:31] LABS: Basophils % (Auto) 0 % (0-2.5); Eosinophils # (Auto) 0.1 Thou/mm3 (0.0-0.5); Eosinophils % (Auto) 1 % (0-10); Hematocrit 33.3 % (36.0-46.0); Hemoglobin 12.2 g/dL (12.0-16.0); Immature Granulocytes % (Auto) 0 % (0-0); Immature Granulocytes Auto 0.01 Thou/mm3 (0.00-0.00); Lymphocytes # (Auto) 1.5 Thou/mm3 (1.0-4.8); Lymphocytes % (Auto) 24 % (10-50); Mean Corpuscular HGB Conc 36.6 g/dl (31.0-37.0); Mean Corpuscular Volume 98 fL (80-100); Monocytes # (Auto) 0.3 Thou/mm3 (0.0-0.8); Monocytes % (Auto) 5 % (0-12); Neutrophils # (Auto) 4.4 Thou/mm3 (1.8-7.7); Neutrophils % (Auto) 70 % (37-80); Nucleated Red Blood Cell % 0 /100 WBC (0); Platelet Count 193 Thou/mm3 (140-440); RDW Standard Deviation 47.3 fL (36.4-46.3); Red Blood Count 3.39 Miln/mm3 (4.00-5.20); White Blood Count 6.3 Thou/mm3 (3.6-11.0)
[2024-09-04] MEDS: HYDROcodone/APAP 5/325 TABLET 1 TAB PO (00:41)
[2024-09-04] MEDS: ONDANSETRON ODT 4 MG TABRAP PO (00:41)
[2024-09-04 00:53] LABS: Alanine Aminotransferase 29 U/L (10-49); Albumin, Serum 4.5 gm/dL (3.4-4.8); Albumin/Globulin Ratio 1.7 (1.2-2.2); Alkaline Phosphatase 124 U/L (46-116); Anion Gap 8 (7-16); Aspartate Amino Transferase 41 U/L (0-34); BUN/Creatinine Ratio 9 Ratio (12-20); Bilirubin,Total 0.9 mg/dL (0.3-1.2); Blood Urea Nitrogen 14 mg/dL (9-23); Calcium 9.6 mg/dL (8.3-10.6); Calcium (Corrected) 9.6 mg/dL (8.5-10.1); Carbon Dioxide 24.6 mMol/L (20.0-31.0); Chloride 104 mMol/L (98-107); Creatinine (Component) 1.5 mg/dL (0.6-1.3); Estimated Creatinine Clearance 26.8 mL/min (>60); Globulin 2.7 gm/dL (2.3-3.5); Glucose 108 mg/dL (74-106); Lipase 38 U/L (12-53); Osmolality,Calculated 275 (275-295); Potassium 3.8 mMol/L (3.4-5.1); Sodium 137 mMol/L (136-145); Total Protein 7.2 gm/dL (5.7-8.2); eGFR 38 See Note
== END 2024-09-04 04:51 | disposition left against medical advice (07) ==
PROVIDERS: Physician Assistant; Emergency Provider Emergency Medicine; PCP Nurse Practitioner Family
DX: R10.9 Unspecified abdominal pain (principal); R19.7 Diarrhea, unspecified; Z53.29 Procedure and treatment not carried out because of patient's decision for other reasons
CPT/HCPCS: 36415; 80053; 83690; 85025; 99281; Q0162; A9270

== ENCOUNTER 2024-09-11 14:45 | Inpatient (IN) | payer MEDICARE, MEDICAID, SELFPAY ==
[2024-09-11 14:50] VITALS: PULSE 60; O2SAT 97; BMI 19.5
--- NOTE | 2024-09-11 15:26 | PD.EDRME ---
Rapid Medical Screening Exam RME Arrival date/time: 09/11/24 14:45 64-year-old female with a history of hyperlipidemia, seizures, hypothyroidism, presents to the emergency room with a chief complaint of generalized cramping throughout her body. Patient states she is having pain and a cramping sensation intermittently throughout the day. Patient states she recently got over multiple days of having diarrhea. I have greeted and performed a focused initial assessment of this patient. A comprehensive ED assessment and evaluation of the patient, analysis of all test results, and completion of the medical decision making process will be conducted by additional ED providers. Chief Complaint: General Adult/Misc Complain Vital signs reviewed by provider: Yes
[2024-09-11 15:34] VITALS: BP 148/88; PULSE 85; RESP 18; TEMP 36.8; O2SAT 96
[2024-09-11 16:10] LABS: Basophils % (Auto) 0 % (0-2.5); Eosinophils % (Auto) 0 % (0-10); Hematocrit 41.5 % (36.0-46.0); Immature Granulocytes % (Auto) 0 % (0-0); Immature Granulocytes Auto 0.04 Thou/mm3 (0.00-0.00); Lymphocytes # (Auto) 3.9 Thou/mm3 (1.0-4.8); Lymphocytes % (Auto) 34 % (10-50); Mean Corpuscular HGB Conc 38.6 g/dl (31.0-37.0); Mean Corpuscular Hemoglobin 35.8 pg (25.0-35.0); Mean Corpuscular Volume 93 fL (80-100); Monocytes # (Auto) 0.7 Thou/mm3 (0.0-0.8); Monocytes % (Auto) 6 % (0-12); Neutrophils # (Auto) 6.9 Thou/mm3 (1.8-7.7); Neutrophils % (Auto) 60 % (37-80); Nucleated Red Blood Cell % 0 /100 WBC (0); Platelet Count 327 Thou/mm3 (140-440); RDW Standard Deviation 43.6 fL (36.4-46.3); Red Blood Count 4.47 Miln/mm3 (4.00-5.20); White Blood Count 11.5 Thou/mm3 (3.6-11.0)
[2024-09-11 16:28] LABS: Alanine Aminotransferase 33 U/L (10-49); Albumin, Serum 5.3 gm/dL (3.4-4.8); Albumin/Globulin Ratio 1.5 (1.2-2.2); Alkaline Phosphatase 127 U/L (46-116); Anion Gap 14 (7-16); Aspartate Amino Transferase 69 U/L (0-34); BUN/Creatinine Ratio 7 Ratio (12-20); Bilirubin,Total 1.3 mg/dL (0.3-1.2); Blood Urea Nitrogen 11 mg/dL (9-23); Calcium 9.7 mg/dL (8.3-10.6); Calcium (Corrected) 9.7 mg/dL (8.5-10.1); Chloride 87 mMol/L (98-107); Creatine Kinase 925 U/L (34-171); Creatinine (Component) 1.5 mg/dL (0.6-1.3); Estimated Creatinine Clearance 26.8 mL/min (>60); Globulin 3.5 gm/dL (2.3-3.5); Glucose 128 mg/dL (74-106); Lipase 32 U/L (12-53); Osmolality,Calculated 254 (275-295); Potassium 4.6 mMol/L (3.4-5.1); Sodium 126 mMol/L (136-145); Total Protein 8.8 gm/dL (5.7-8.2); eGFR 38 See Note
--- NOTE | 2024-09-11 18:55 | PD.EDEXREM ---
ED Extremity Problem RME/HPI General Chief complaint: General Adult/Misc Complain Stated complaint: BODY CRAMPS Time Seen by Provider: 09/11/24 18:21 Arrival date/time: 09/11/24 14:45 RME / HPI RME / HPI Narrative: 09/11/24 14:45 64-year-old female with a history of hyperlipidemia, seizures, hypothyroidism, presents to the emergency room with a chief complaint of generalized cramping throughout her body. Patient states she is having pain and a cramping sensation intermittently throughout the day. Patient states she recently got over multiple days of having diarrhea. I have greeted and performed a focused initial assessment of this patient. A comprehensive ED assessment and evaluation of the patient, analysis of all test results, and completion of the medical decision making process will be conducted by additional ED providers. This section includes all my notes and documentations, including HPI, PE, and ED course. Sp Richard MD HPI: 64-year-old female with a history of hyperlipidemia, seizures, hypothyroidism, presents to the emergency room with a chief complaint of generalized cramping throughout her body. Patient states she is having pain and a cramping sensation intermittently throughout the day. Patient states she recently got over multiple days of having diarrhea. ROS: All negative except as documented in HPI. Physical Exam: General: Alert and oriented. Appearance of malaise noted. Eyes: Conjunctivae and lids clear. ENT: No nasal congestion. Neck: Supple. Heart: RRR. Lungs: No respiratory distress. Good air movement. No rhonchi, wheezing, rales. Abdomen: Soft and nontender. Legs: No clubbing, cyanosis, edema. Skin: Warm and dry. Neuro: Alert and oriented X 3. I reviewed all diagnostic test results. My interpretation of the EKG is sinus rhythm with no acute ST?T changes. My interpretation of the chest x-ray is infiltrates. Blood tests and urine tests remarkable for WBC 11.5, Na 126, CR 1.5, CK 925, TSH > 150, free T4 0.15, and UTI. At this point, diagnoses include hyponatremia, pneumonia, UTI, rhabdomyolysis, hypothyroidism. Treatment here included Zithromax, Rocephin, NS, Toradol, Morphine, and Zofran. Patient remained stable. I discussed the case with our hospitalist. About the presentation and exam and diagnostics and treatments here. And need of further care in the hospital. Will accept the patient. Sp Richard MD Related Data Home Medications ?Medication ?Instructions ?Recorded ?Confirmed atorvastatin 20 mg tablet 20 mg PO HS 05/11/20 04/25/24 alprazolam 0.5 mg tablet (Xanax) 0.5 mg PO BID PRN Anxiety 01/14/23 04/25/24 benztropine 1 mg tablet 1 mg PO TID 01/14/23 04/25/24 levetiracetam 1,000 mg tablet 1,000 mg PO BID 01/14/23 04/25/24 losartan 100 mg tablet 100 mg PO QDAY 01/14/23 04/25/24 Held on 07/25/23. Instructions: Resume on 07/28/23. Resume if average SBP >140 and/or DBP >90 lumateperone 42 mg capsule 42 mg PO QDAY 01/14/23 04/25/24 (Caplyta) trazodone 50 mg tablet 50 mg PO HS 01/14/23 04/25/24 levothyroxine 112 mcg tablet 112 mcg PO 1XD 07/19/23 04/25/24 oxybutynin chloride 10 mg 10 mg PO QDAY 04/25/24 04/25/24 tablet,extended release 24 hr Previous Rx's ?Medication ?Instructions ?Recorded ferrous sulfate 325 mg (65 mg 325 mg PO .qod #30 tabs 07/29/23 iron) tablet pantoprazole 40 mg tablet,delayed 40 mg PO BID #60 tabs 08/03/23 release cephalexin 500 mg capsule 500 mg PO BID #6 caps 11/03/23 Allergies Allergy/AdvReac Type Severity Reaction Status Date / Time ampicillin Allergy Severe Hives Verified 09/03/24 23:56 Penicillins Allergy Severe Hives Verified 09/03/24 23:56 Review of Systems Review of Systems Systems Reviewed: All systems reviewed, normal except as documented Past Medical History Past Medical History NEUROLOGIC: Positive Neurological Disorders, Seizures, Epilepsy and Head Trauma CARDIAC: Positive Cardiac Disorders, Atrial Fibrillation, Hypercholesterolemia and Hypertension; Negative Angina or Congestive Heart Failure RESPIRATORY: Positive Asthma; Negative Chronic Obstructive Pulmonary Disease (COPD) GASTROINTESTINAL: Positive Gastrointestinal Disorders and Gall Bladder Disease GENITOURINARY: Negative Genitourinary Disorders or Renal Disease REPRODUCTIVE: Positive Previous Pregnancies; Negative Breast Cancer, Endometriosis or Pelvic Inflammatory Disease MUSCULOSKELETAL: Positive Musculoskeletal Disorders, Osteoporosis and Fractures ENT: Positive Head Trauma ENDOCRINE: Positive Endocrine Disorders and Hypothyroidism; Negative Diabetes Mellitus Type 1 or Diabetes Mellitus Type 2 HEMATOLOGIC: Negative Blood Disorders or Sickle Cell Disease PSYCHO/SOCIAL: Positive Schizophrenia, Bipolar Disorder, Depression and Anxiety OTHER HISTORY: Positive Blood Transfusions, Radiation Therapy, Chicken Pox, Measles, Clostridium Difficile and Cancer; Negative Autoimmune Disease, Blood Transfusion Reaction, Anesthesia Reactions, Organ Transplant, MRSA or Breast Cancer Family History FAMILY HISTORY: Positive Family Respiratory Disorders, Family Cardiac Disorders and Family Cancer; Negative Family Psychiatric Problems, Family Gastrointestinal Problems, Family Surgery or Family Anesthesia Reaction Surgical History SURGICAL: Positive Thyroidectomy and Hysterectomy; Negative Cardiac Surgery, Endocrine Surgery, Ear Surgery, Abdominal Surgery, Nephrectomy, Joint Replacement, Neurologic Surgery, Mastectomy, Vasectomy or Organ Transplant Social History SMOKING STATUS: Never smoker SUBSTANCE USE: does not use ED Exam Narrative Physical exam: As noted in HPI. Course Course Course Narrative: CXR is ordered for determining the etiology of cough. Quality Measures none Orders Category Date Time Status Admit to Inpatient Status Routine Admission 09/11/24 23:56 Active Patient Condition Routine Admission 09/11/24 23:55 Ordered EKG (ED ONLY) *Do not use* NOW Care 09/11/24 19:24 Completed Notify provider NEEDED Care 09/11/24 23:55 Active Saline [Insert IV] NOW Care 09/11/24 19:23 Active Seizure precautions NEEDED Care 09/11/24 23:56 Active Straight [In and Out Catheter] X1 Care 09/11/24 19:23 Active Diet Cardiac Diet 09/12/24 Breakfast Active EKG (ED Only) Stat Exams 09/11/24 19:24 Draft XR chest 1V portable Stat Exams 09/11/24 19:24 Completed CBC AM DRAW Lab 09/12/24 05:00 Ordered CBC AM DRAW Lab 09/13/24 05:00 Ordered CBC AM DRAW Lab 09/14/24 05:00 Ordered CBC Stat Lab 09/11/24 15:57 Completed CK [Creatine Kinase] Stat Lab 09/11/24 15:57 Completed CMP [Comprehensive Metabolic Panel] Stat Lab 09/11/24 15:57 Completed Comprehensive Metabolic Panel AM DRAW Lab 09/12/24 05:00 Ordered Comprehensive Metabolic Panel AM DRAW Lab 09/13/24 05:00 Ordered Comprehensive Metabolic Panel AM DRAW Lab 09/14/24 05:00 Ordered Drug Screen,Urine Stat Lab 09/11/24 20:38 Completed Free T4 (Free Thyroxine) Stat Lab 09/11/24 19:57 Completed Lipase Stat Lab 09/11/24 15:57 Completed Lipid Panel Routine Lab 09/11/24 23:57 Received Magnesium AM DRAW Lab 09/12/24 05:00 Ordered Magnesium Stat Lab 09/11/24 19:57 Completed Phosphorous AM DRAW Lab 09/12/24 05:00 Ordered TSH [Thyroid Stimulating Hormone] Stat Lab 09/11/24 19:57 Completed Troponin I Stat Lab 09/11/24 19:57 Completed UA [Urinalysis] Stat Lab 09/11/24 20:38 Completed Urine Culture Stat Lab 09/11/24 20:38 Received Acetaminophen Tab [Tylenol Tab] Med 09/11/24 23:55 Active 650 mg PO Q6H PRN Azithromycin Inj [Zithromax Inj] 500 mg Med 09/11/24 22:55 Discontinued Sodium Chloride 0.9% 250 ml [Ns] 250 ml IV X1 Heparin Inj Med 09/12/24 06:00 Active 5,000 unit SC Q8HR Ketorolac Inj [Toradol Inj] Med 09/11/24 19:23 Discontinued 15 mg IVP X1 ONE Morphine Inj Med 09/11/24 19:23 Discontinued 4 mg IVP X1 ONE Ondansetron Inj [Zofran Inj] Med 09/11/24 23:55 Active 4 mg IV Q6H PRN Ondansetron Inj [Zofran Inj] Med 09/11/24 19:23 Discontinued 4 mg IV X1 ONE Senna [Senokot] Med 09/11/24 23:55 Active 1 tab PO QDAY PRN Sodium Chloride 0.9% 1000 ml [Ns] 1,000 ml Med 09/11/24 19:23 Discontinued IV 999 mls/hr cefTRIAXone [Rocephin] 1,000 mg Med 09/11/24 21:50 Discontinued SODIUM CHLORIDE 0.9% (Popper) [Ns 0.9% (P)] 50 ml IV X1 Code Status Routine Oth 09/11/24 23:55 Ordered Oxygen Delivery PRN RT 09/11/24 23:55 Active Vital Signs Vital signs: Vital Signs Temperature 98.2 F 09/11/24 15:34 Pulse Rate 85 09/11/24 15:34 Respiratory Rate 18 09/11/24 15:34 Blood Pressure 148/88 H 09/11/24 15:34 Pulse Oximetry (%) 96 09/11/24 15:34 Oxygen Delivery Method Room Air 09/11/24 15:34 Extremity Problem Patient data External records reviewed:: [facility] previous records (Per chart review, patient was seen here on 05/11/24 for acute dehydration.) Clinical information provided by:: patient Social determinants that could affect healthcare access:: none Patient has the following chronic illnesses:: epilepsy, aFib, HTN How is presenting disease/condition affected by chronic disease/condition?: uneffected by Evaluation data The following diagnostics were reviewed and interpreted by me:: lab results, radiology exam(s) and EKG tracing(s) Lab and/or radiology exams considered but not ordered:: none Interpretation Summary: hyponatremia, pneumonia, UTI, rhabdomyolysis, hypothyroidism Medications / Prescriptions Medications or Prescriptions considered but not ordered:: none Medication administrations:: Medication Administration History Acetaminophen (Acetaminophen 325 Mg Tablet) 650 mg PO Q6H PRN PRN Reason: Fever >100.3 or pain 1-3 Stop: 10/11/24 23:54 Heparin Sodium (Porcine) (Heparin Sod Inj 5000 Unit/Ml Vial) 5,000 unit SC Q8HR QUINTEN Stop: 09/26/24 05:59 Ondansetron HCl (Ondansetron Inj 2 Mg/Ml Inj 2 Ml) 4 mg IV Q6H PRN; Protocol PRN Reason: NAUSEA OR VOMITING Stop: 10/11/24 23:54 Sennosides (Senna Tablet) 1 tab PO QDAY PRN; Protocol PRN Reason: constipation Stop: 10/11/24 23:54 Discontinued Medications Sodium Chloride (Ns) 1,000 mls @ 999 mls/hr IV .Q1H1M ONE Stop: 09/11/24 20:23 Last Admin: 09/11/24 22:40 Dose: 999 mls/hr Documented By: CHERYL Ceftriaxone Sodium 1,000 mg/ (Sodium Chloride) 50 mls @ 100 mls/hr IV X1 ONE Stop: 09/11/24 22:19 Last Admin: 09/11/24 22:39 Dose: 100 mls/hr Documented By: CHERYL Azithromycin 500 mg/ Sodium (Chloride) 250 mls @ 250 mls/hr IV X1 ONE Stop: 09/11/24 23:54 Last Admin: 09/12/24 00:06 Dose: 250 mls/hr Documented By: PINOR Ketorolac Tromethamine (Ketorolac Inj 30 Mg/Ml Vial) 15 mg IVP X1 ONE Stop: 09/11/24 19:24 Last Admin: 09/11/24 22:38 Dose: 15 mg Documented By: PINOR Morphine Sulfate (Morphine Sulf Inj 10 Mg/Ml Vial) 4 mg IVP X1 ONE Stop: 09/11/24 19:24 Last Admin: 09/11/24 22:38 Dose: 4 mg Documented By: PINOR Ondansetron HCl (Ondansetron Inj 2 Mg/Ml Inj 2 Ml) 4 mg IV X1 ONE; Protocol Stop: 09/11/24 19:24 Last Admin: 09/11/24 22:39 Dose: 4 mg Documented By: CHERYL Treatment here from me included Zithromax, Rocephin, NS, Toradol, Morphine, and Zofran. Consultations Consultation(s) initiated? (list below): No Diagnosis Extremity Problem Differential Diagnosis: other ([place], electrolyte abnormalities, dehydration, rhabdomyolysis, UTI, pneumonia, sepsis) Most likely diagnosis given after review of the tests above:: hyponatremia, pneumonia, UTI, rhabdomyolysis, hypothyroidism Admission Indicated Admission indicated?: indicated Explain why admission is indicated or not indicated:: hyponatremia, pneumonia, UTI, rhabdomyolysis, hypothyroidism Admission Request Was there a request for admission?: Yes Admission Attestation Admission request attestation: Discussed case with Hospitalist service regarding admission. Discussed patients ED course, exam findings, labs, and radiology results. The Hospitalist [agrees] to accept the patient for admission. Disposition Plan Disposition Plan: Admit Discharge Plan Plan Patient Disposition: Admit Acute Care w/in Hospital Problem List Clinical Impression: Hyponatremia, UTI (urinary tract infection), Rhabdomyolysis, Pneumonia, Hypothyroidism
--- NOTE | 2024-09-11 19:24 | EKG_ITS ---
[facility] Test Date: 2024-09-11 Pat Name: CHANDLER HODGES Department: Room: - Gender: Female Lieutenant/Deputy: : 1960 Requested By: Sp Olvera Order Number: [id number] Reading MD: Sp Olvera Measurements Intervals [place] Rate: 61 P: 30 WY: 138 QRS: 28 QRSD: 81 T: 15 QT: 449 QTc: 453 Interpretive Statements SINUS RHYTHM NONSPECIFIC T-WAVE ABNORMALITY Compared to ECG 08/03/2023 15:43:20 T-wave abnormality now present Short W[place] interval no longer present /store/S0/[id number].pdf
--- NOTE | 2024-09-11 19:24 | XR_ITS ---
Examination: AP chest single view Technique: Portable AP sitting chest single view Exam date and time: September 11, 2024 1941 hrs. Indications: Shortness of breath today. Findings: Mild opacity left base Normal heart size Right lung clear Moderate osteopenia Impression: Suspicious for early pneumonia left base
[2024-09-11 20:25] VITALS: BP 155/113; BP 158/120; PULSE 65; RESP 17; TEMP 37; O2SAT 97
[2024-09-11 20:43] LABS: Collection Type, Urine Clean Catch
[2024-09-11 20:44] LABS: Free T4 (Free Thyroxine) 0.15 ng/dL (0.89-1.76); Magnesium 2.8 mg/dL (1.6-2.6); Thyroid Stimulating Hormone > 150.00 uIU/mL (0.55-4.78); Troponin I < 0.020 ng/mL (0.0-0.045)
[2024-09-11 21:01] LABS: Amphetamine/Methamp Scrn,U Negative (Negative); Bacteria,Urine 3+; Barbiturate Screen,Urine Negative (Negative); Benzodiazepines Screen,Urine Positive (Negative); Benzoylecgonine Screen, Ur Negative (Negative); Bilirubin,Urine Negative (Negative); Blood,Urine 2+ (Negative); Clarity,Urine Turbid (Clear/Hazy); Color,Urine Yellow (Lt Yel-Yel); Fentanyl Screen,Urine Negative (Negative); Glucose, Urine Negative (Negative); Ketones,Urine Trace (Negative); Leukocyte Esterase,Urine Positive (Negative); Nitrite,Urine Negative (Negative); Opiate Screen,Urine Negative (Negative); PH,Urine 6.5 (5.0-7.0); Protein,Urine 2+ (Neg - Trace); RBC,Urine 7 /hpf (0-3); Specific Gravity,Urine 1.019 (1.001-1.035); Squamous Epithelial Cell,Urine < 1 /hpf (0-5); THC Screen,Urine Positive (Negative); Urobilinogen,Urine Negative mg/dL (0.0-1.0); WBC,Urine 808 /hpf (0-5)
[2024-09-11] MEDS: MORPHINE SULF INJ 10 MG/ML VIAL 4 MG IVP (22:38)
[2024-09-11] MEDS: KETOROLAC INJ 30 MG/ML VIAL 15 MG IVP (22:38)
[2024-09-11] MEDS: ONDANSETRON INJ 2 MG/ML INJ 2 ML 4 MG IV (22:39)
[2024-09-11] MEDS: cefTRIAXone 1,000 MG in SODIUM CHLORIDE 0.9% (Popper) 50 ML 100 MG IV (22:39)
[2024-09-11] MEDS: SODIUM CHLORIDE 0.9% 1000 ML 1,000 ML 999 ML IV (22:40)
[2024-09-12] VITALS (15 sets, daily range): BP systolic 141–189; BP diastolic 95–112; PULSE 12–66; RESP 15–95; TEMP 36.4–36.9; O2SAT 94–99; BMI 19.2
[2024-09-12] MEDS: AZITHROMYCIN INJ 500 MG in SODIUM CHLORIDE 0.9% 250 ML 250 ML 250 MG IV (00:06)
--- NOTE | 2024-09-12 00:45 | PD.RESHP ---
Documentation for date of: 09/12/24 HPI History of Present Illness Chief complaint: general weakness History of present illness: The patient is a 63-year-old female with a previous medical history of hypertension, hyperlipidemia, seizure disorder, osteoporosis, thyroid cancer status post thyroidectomy, hypothyroidism who came to the ED due to lower extremity cramps and general weakness. According to her she has been becoming more weak and having cramps in the last few months, but last night her cramps were especially strong and she decided to come to the ED. She also reports that she has been having diarrhea for 2 months and nausea vomiting. Son at the bedside, reports that she became more slow, started to use cane for walking, patient also reports her voice has became coarse as if she has a cold'. When questioned, she reports dry skin, cold sensitivity. She reports that her thyroid medication was discontinued by her primary care practitioner, she does not know the reason and she has not been taking levothyroxine for a while. ED course: Blood pressure 148/88, heart rate 85, afebrile, saturating well on room air, labs were significant for mild leukocytosis 11.5, hemoglobin 16.0, sodium 126, potassium 4.6, BUN 11, creatinine 1.5, magnesium 2.8, T. bili 1.3, AST 69, ALT 33, alkaline phosphatase 127, total creatinine kinase 925, TSH more than 150, free T4 0.15. UA was positive for signs of UTI. U tox is positive for benzodiazepines and marijuana. Chest x-ray: Suspicion for early pneumonia left base. Social history: Does not smoke, drinks alcohol socially once in a few months, smokes marijuana. Home medications: Levetiracetam, propranolol, alprazolam. Patient is going to be admitted due to general weakness secondary to hypothyroidism. Review of Systems Review of Systems Systems Reviewed: All systems reviewed, normal except as documented Past Medical History Past Medical History NEUROLOGIC: Positive Neurological Disorders, Seizures, Epilepsy and Head Trauma CARDIAC: Positive Cardiac Disorders, Atrial Fibrillation, Hypercholesterolemia and Hypertension; Negative Angina or Congestive Heart Failure RESPIRATORY: Positive Asthma; Negative Chronic Obstructive Pulmonary Disease (COPD) GASTROINTESTINAL: Positive Gastrointestinal Disorders and Gall Bladder Disease GENITOURINARY: Negative Genitourinary Disorders or Renal Disease REPRODUCTIVE: Positive Previous Pregnancies; Negative Breast Cancer, Endometriosis or Pelvic Inflammatory Disease MUSCULOSKELETAL: Positive Musculoskeletal Disorders, Osteoporosis and Fractures ENT: Positive Head Trauma ENDOCRINE: Positive Endocrine Disorders and Hypothyroidism; Negative Diabetes Mellitus Type 1 or Diabetes Mellitus Type 2 HEMATOLOGIC: Negative Blood Disorders or Sickle Cell Disease PSYCHO/SOCIAL: Positive Schizophrenia, Bipolar Disorder, Depression and Anxiety OTHER HISTORY: Positive Blood Transfusions, Radiation Therapy, Chicken Pox, Measles, Clostridium Difficile and Cancer; Negative Autoimmune Disease, Blood Transfusion Reaction, Anesthesia Reactions, Organ Transplant, MRSA or Breast Cancer Family History FAMILY HISTORY: Positive Family Respiratory Disorders, Family Cardiac Disorders and Family Cancer; Negative Family Psychiatric Problems, Family Gastrointestinal Problems, Family Surgery or Family Anesthesia Reaction Surgical History SURGICAL: Positive Thyroidectomy and Hysterectomy; Negative Cardiac Surgery, Endocrine Surgery, Ear Surgery, Abdominal Surgery, Nephrectomy, Joint Replacement, Neurologic Surgery, Mastectomy, Vasectomy or Organ Transplant Social History SMOKING STATUS: Never smoker SUBSTANCE USE: does not use Exam Vital Signs Temp Pulse Resp BP Pulse Ox O2 Del Method 98.3 F 55 L 18 189/112 H 96 Room Air 09/12/24 00:18 09/12/24 00:18 09/12/24 00:18 09/12/24 00:18 09/12/24 00:18 09/12/24 00:18 Narrative Exam Physical Exam General: Awake and in no acute distress. Slow speech. General weakness HEENT: Normocephalic, atraumatic, mucous membranes moist. Heart: Regular rate and rhythm, no murmurs. Lungs: Clear to auscultation with no wheezing or crackles. Abdomen: Soft, nondistended, nontender, positive bowel sounds. ?No guarding or rebound tenderness. Neurologic: Alert and oriented x3, general weakness, low tendon reflexes. Extremities: No edema. Skin: No rash or ecchymoses. Dry skin. Results: Labs 09/12/24 04:17 09/12/24 04:17 Labs: Short CBC 09/11/24 Range/Units 15:57 WBC 11.5 H (3.6-11.0) Thou/mm3 Hgb 16.0 (12.0-16.0) g/dL Hct 41.5 (36.0-46.0) % Plt Count 327 D (140-440) Thou/mm3 BMP 09/11/24 15:57 Sodium 126 L Potassium 4.6 Chloride 87 L Carbon Dioxide 25.0 BUN 11 Creatinine 1.5 H Glucose 128 H Calcium 9.7 Cardiac Enzymes 09/11/24 09/11/24 Range/Units 15:57 19:57 Total Creatine Kinase 925 H (34-171) U/L Troponin I < 0.020 (0.0-0.045) ng/mL Liver Function 09/11/24 Range/Units 15:57 Total Bilirubin 1.3 H (0.3-1.2) mg/dL AST 69 H (0-34) U/L ALT 33 (10-49) U/L Alkaline Phosphatase 127 H (46-116) U/L Albumin 5.3 H (3.4-4.8) gm/dL Urine 09/11/24 Range/Units 20:38 Urine Color Yellow (Lt Yel-Yel) Urine Clarity Turbid A (Clear/Hazy) Urine pH 6.5 (5.0-7.0) Ur Specific [place] 1.019 (1.001-1.035) Urine Protein 2+ A (Neg - Trace) Urine Glucose (UA) Negative (Negative) Quality Measures Quality Measures VTE prophylaxis Advance care planning discussed with:: patient Medications Home Medications and Allergies Home Medications ?Medication ?Instructions ?Recorded ?Confirmed ?Type atorvastatin 20 mg tablet 20 mg PO HS 05/11/20 04/25/24 History alprazolam 0.5 mg tablet (Xanax) 0.5 mg PO BID PRN Anxiety 01/14/23 04/25/24 History benztropine 1 mg tablet 1 mg PO TID 01/14/23 04/25/24 History levetiracetam 1,000 mg tablet 1,000 mg PO BID 01/14/23 04/25/24 History losartan 100 mg tablet 100 mg PO QDAY 01/14/23 04/25/24 History Held on 07/25/23. Instructions: Resume on 07/28/23. Resume if average SBP >140 and/or DBP >90 lumateperone 42 mg capsule 42 mg PO QDAY 01/14/23 04/25/24 History (Caplyta) trazodone 50 mg tablet 50 mg PO HS 01/14/23 04/25/24 History levothyroxine 112 mcg tablet 112 mcg PO 1XD 07/19/23 04/25/24 History oxybutynin chloride 10 mg 10 mg PO QDAY 04/25/24 04/25/24 History tablet,extended release 24 hr Allergies Allergy/AdvReac Type Severity Reaction Status Date / Time ampicillin Allergy Severe Hives Verified 09/03/24 23:56 Penicillins Allergy Severe Hives Verified 09/03/24 23:56 Visit Medications Acetaminophen (Acetaminophen 325 Mg Tablet) 650 mg PO Q6H PRN PRN Reason: Fever >100.3 or pain 1-3 Stop: 10/11/24 23:54 Heparin Sodium (Porcine) (Heparin Sod Inj 5000 Unit/Ml Vial) 5,000 unit SC Q8HR QUINTEN Stop: 09/26/24 05:59 Ondansetron HCl (Ondansetron Inj 2 Mg/Ml Inj 2 Ml) 4 mg IV Q6H PRN; Protocol PRN Reason: NAUSEA OR VOMITING Stop: 10/11/24 23:54 Sennosides (Senna Tablet) 1 tab PO QDAY PRN; Protocol PRN Reason: constipation Stop: 10/11/24 23:54 Discontinued Medications Sodium Chloride (Ns) 1,000 mls @ 999 mls/hr IV .Q1H1M ONE Stop: 09/11/24 20:23 Last Admin: 09/11/24 22:40 Dose: 999 mls/hr Ceftriaxone Sodium 1,000 mg/ (Sodium Chloride) 50 mls @ 100 mls/hr IV X1 ONE Stop: 09/11/24 22:19 Last Admin: 09/11/24 22:39 Dose: 100 mls/hr Azithromycin 500 mg/ Sodium (Chloride) 250 mls @ 250 mls/hr IV X1 ONE Stop: 09/11/24 23:54 Last Admin: 09/12/24 00:06 Dose: 250 mls/hr Ketorolac Tromethamine (Ketorolac Inj 30 Mg/Ml Vial) 15 mg IVP X1 ONE Stop: 09/11/24 19:24 Last Admin: 09/11/24 22:38 Dose: 15 mg Morphine Sulfate (Morphine Sulf Inj 10 Mg/Ml Vial) 4 mg IVP X1 ONE Stop: 09/11/24 19:24 Last Admin: 09/11/24 22:38 Dose: 4 mg Ondansetron HCl (Ondansetron Inj 2 Mg/Ml Inj 2 Ml) 4 mg IV X1 ONE; Protocol Stop: 09/11/24 19:24 Last Admin: 09/11/24 22:39 Dose: 4 mg Assessment & Plan Plan The patient is a 63-year-old female with a previous medical history of hypertension, hyperlipidemia, seizure disorder, thyroid cancer status post thyroidectomy, hypothyroidism who came to the ED due to lower extremity cramps and general weakness. Patient is going to be admitted due to general weakness secondary to hypothyroidism. #General weakness #Hypothyroid myopathy #Hypothyroidism #History of thyroid cancer, s/p thyroidectomy Patient has history of thyroid cancer, underwent thyroidectomy. According to the patient she was on levothyroxin previously, but it was discontinued by her PCP for the reasons unknown to the patient. On examination her speech is slow, voice is coarse and tendon reflexes are low. Plan: - levothyroxine 50 mcg daily, adjust dose as needed - Physical therapy #Elevated creatinine kinase Creatine kinase 925, most likely in the setting of hypothyroidism. Plan: - monitor daily CBC #CKD stage III Most likely in the setting of longstanding hypertension Plan: - monitor CBC - BP control #Seizure disorder Stable Plan: - resumed home Keppra #Hypertension Patient reports taking propranolol at home, on charting she has filled prescription for propranolol 60mg. Plan: - med rec is pending - propranolol 20 mg TID #Hyponatremia Moderate hyponatremia. Not symptomatic. Plan: - monitor CMP - encourage oral intake Health maintenance: FEN: cardiac DVT prophylaxis: heparin sc GI prophylaxis: none Dispo: med surg CODE STATUS: Full code Plan of care discussed with attending Dr. Hook. Sofie Stewart MD, PGY 1. Attending Provider Attestation/Addendum 64-year-old lady was admitted for gene his creatinine kinase is elevated. The patient has hypertension, CKD ralized weakness, patient has elevated thyroid TSH. Patient has had thyroidectomy for thyroid cancer. Her creatinine kinase is elevated. Patient is noted to have hyponatremia as well. Discussed with housestaff.
--- NOTE | 2024-09-12 00:55 | PC.NURSE ---
pt states son has med rec. tried calling just now, N/A.
[2024-09-12 01:08] LABS: Cardiac Risk Estimate 1.8 RATIO (3.7-5.6); Cholesterol 162 mg/dL (132-200); HDL Cholesterol 92 mg/dL (40-60); LDL Cholesterol,Calculated 33 mg/dL (0-130); Triglycerides 187 mg/dL (30-150)
[2024-09-12] MEDS: PROPRANOLOL 10 MG TABLET 20 MG PO ×4 (01:40→21:04)
[2024-09-12] MEDS: ONDANSETRON INJ 2 MG/ML INJ 2 ML 4 MG IV ×2 (01:59→12:57)
[2024-09-12] MEDS: HEPARIN SOD INJ 5000 UNIT/ML VIAL SC ×3 (05:11→21:04)
[2024-09-12] MEDS: LEVOTHYROXINE SODIUM 25 MCG TABLET 50 MCG PO (05:11)
[2024-09-12 05:23] LABS: Basophils % (Auto) 0 % (0-2.5); Eosinophils % (Auto) 0 % (0-10); Hematocrit 39.7 % (36.0-46.0); Hemoglobin 14.8 g/dL (12.0-16.0); Immature Granulocytes % (Auto) 0 % (0-0); Immature Granulocytes Auto 0.05 Thou/mm3 (0.00-0.00); Lymphocytes % (Auto) 24 % (10-50); Mean Corpuscular HGB Conc 37.3 g/dl (31.0-37.0); Mean Corpuscular Hemoglobin 35.7 pg (25.0-35.0); Mean Corpuscular Volume 96 fL (80-100); Monocytes % (Auto) 8 % (0-12); Neutrophils # (Auto) 8.2 Thou/mm3 (1.8-7.7); Neutrophils % (Auto) 67 % (37-80); Nucleated Red Blood Cell % 0 /100 WBC (0); Platelet Count 278 Thou/mm3 (140-440); RDW Standard Deviation 45.3 fL (36.4-46.3); Red Blood Count 4.14 Miln/mm3 (4.00-5.20); White Blood Count 12.2 Thou/mm3 (3.6-11.0)
[2024-09-12 06:08] LABS: Alanine Aminotransferase 32 U/L (10-49); Albumin, Serum 4.6 gm/dL (3.4-4.8); Albumin/Globulin Ratio 1.5 (1.2-2.2); Alkaline Phosphatase 113 U/L (46-116); Anion Gap 14 (7-16); Aspartate Amino Transferase 77 U/L (0-34); BUN/Creatinine Ratio 10 Ratio (12-20); Bilirubin,Total 0.9 mg/dL (0.3-1.2); Blood Urea Nitrogen 13 mg/dL (9-23); Calcium 8.7 mg/dL (8.3-10.6); Calcium (Corrected) 8.7 mg/dL (8.5-10.1); Chloride 89 mMol/L (98-107); Creatinine (Component) 1.3 mg/dL (0.6-1.3); Estimated Creatinine Clearance 30.4 mL/min (>60); Glucose 90 mg/dL (74-106); Magnesium 2.4 mg/dL (1.6-2.6); Osmolality,Calculated 259 (275-295); Phosphorous 3.8 mg/dL (2.4-5.1); Potassium 4.2 mMol/L (3.4-5.1); Sodium 129 mMol/L (136-145); Total Protein 7.6 gm/dL (5.7-8.2); eGFR 46 See Note
--- NOTE | 2024-09-12 09:00 | PC.NURSE ---
ATTEMPTED TO DO MED REC, PATIENT STATES HER SON HAS LIST OF ALL HER HOME MEDICATION, STATES HE WILL BRING THEM TOMORROW
[2024-09-12] MEDS: levETIRAcetam 250 MG TABLET 500 MG PO ×2 (09:13→21:04)
[2024-09-12 12:00] LABS: Free T4 (Free Thyroxine) < 0.10 ng/dL (0.89-1.76)
[2024-09-12] MEDS: PANTOPRAZOLE 40 MG TABLET PO (12:57)
[2024-09-12] MEDS: RINGERS LACTATED 1000 ML 1,000 ML 75 ML IV (12:59)
[2024-09-12] MEDS: cefTRIAXone/D5w 1gm IV premix 1 GM/50 ML BAG IV (13:12)
--- NOTE | 2024-09-12 14:09 | PC.PT ---
Patient is safe to ambulate to the bathroom using her cane and with 1 staff assist for safety. RN made aware.
--- NOTE | 2024-09-12 16:10 | PC.CC ---
PASRR Level 1 submitted and downloaded. Meets Level 2 criteria - pending.
--- NOTE | 2024-09-12 17:17 | PD.RESPRO ---
Documentation for date of: 09/12/24 Subjective Subjective Interval history: Patient examined at bedside. Complains of nausea, decreased appetite. States that diarrhea episodes have resolved recently. Mild hyponatremia 129, creatinine 1.3, TSH greater than 150. Continue with levothyroxine 50 mcg. Physical therapy evaluation pending, Started patient on IV Rocephin for UTI. Urine cultures pending Exam Vital Signs Temp Pulse Resp BP Pulse Ox O2 Del Method FiO2 97.7 F 61 18 141/96 H 96 Room Air 55 09/12/24 12:00 09/12/24 15:21 09/12/24 12:00 09/12/24 15:21 09/12/24 12:00 09/12/24 12:00 09/12/24 01:27 Narrative Exam General: elderly lady, Awake and in no acute distress. Moving around in bed HEENT: Normocephalic, atraumatic, mucous membranes dry. Heart: Regular rate and rhythm, no murmurs. Lungs: Clear to auscultation with no wheezing or crackles. Abdomen: Soft, nondistended, nontender, positive bowel sounds. ?No guarding or rebound tenderness. Neurologic: Alert and oriented x3, general weakness, Aox3 Extremities: No edema. Skin: No rash or ecchymoses. Dry skin. Objective Labs 09/13/24 04:39 09/13/24 07:05 Labs: Laboratory Results - last 24 hr 09/11/24 09/11/24 09/12/24 19:57 20:38 00:18 WBC RBC Hgb Hct MCV MCH MCHC RDW Std Deviation Plt Count Neut % (Auto) Lymph % (Auto) [place] % (Auto) Eos % (Auto) Baso % (Auto) Neut # (Auto) Lymph # (Auto) [place] # (Auto) Eos # (Auto) Baso # (Auto) Immature Gran # (Auto) Absolute Nucleated RBC Immature Gran % Nucleated RBC % Sodium Potassium Chloride Carbon Dioxide Anion Gap BUN Creatinine Estim Creat Clear Calc eGFR BUN/Creatinine Ratio Glucose Calculated Osmolality Calcium Corrected Calcium Phosphorus Magnesium 2.8 H Total Bilirubin AST ALT Alkaline Phosphatase Troponin I < 0.020 Total Protein Albumin Globulin Albumin/Globulin Ratio Triglycerides 187 H Cholesterol 162 LDL Cholesterol, Calc 33 HDL Cholesterol 92 H Cholesterol/HDL Ratio 1.8 L TSH > 150.00 H* Free T4 0.15 L Ur Collection Type Clean Catch Urine Color Yellow Urine Clarity Turbid A Urine pH 6.5 Ur Specific Fisher 1.019 Urine Protein 2+ A Urine Glucose (UA) Negative Urine Ketones Trace Urine Blood 2+ A Urine Nitrite Negative Urine Bilirubin Negative Urine Urobilinogen (Auto) Negative Ur Leukocyte Esterase Positive Urine RBC 7 H Urine WBC 808 H Ur Squamous Epith Cells < 1 Urine Bacteria 3+ A Urine Opiates Screen Negative Urine Fentanyl Screen Negative Ur Barbiturates Screen Negative U Amphetamin/Meth Scrn Negative U Benzodiazepines Scrn Positive A U Cocaine Metab Screen Negative U Marijuana (THC) Screen Positive A 09/12/24 04:17 WBC 12.2 H RBC 4.14 Hgb 14.8 Hct 39.7 MCV 96 MCH 35.7 H MCHC 37.3 H RDW Std Deviation 45.3 Plt Count 278 D Neut % (Auto) 67 Lymph % (Auto) 24 [place] % (Auto) 8 Eos % (Auto) 0 Baso % (Auto) 0 Neut # (Auto) 8.2 H Lymph # (Auto) 3.0 [place] # (Auto) 1.0 H Eos # (Auto) 0.0 Baso # (Auto) 0.0 Immature Gran # (Auto) 0.05 H Absolute Nucleated RBC 0.00 Immature Gran % 0 Nucleated RBC % 0 Sodium 129 L Potassium 4.2 Chloride 89 L Carbon Dioxide 26.0 Anion Gap 14 BUN 13 Creatinine 1.3 Estim Creat Clear Calc 30.4 L eGFR 46 L BUN/Creatinine Ratio 10 L Glucose 90 Calculated Osmolality 259 L Calcium 8.7 Corrected Calcium 8.7 Phosphorus 3.8 Magnesium 2.4 Total Bilirubin 0.9 AST 77 H ALT 32 Alkaline Phosphatase 113 Troponin I Total Protein 7.6 Albumin 4.6 D Globulin 3.0 Albumin/Globulin Ratio 1.5 Triglycerides Cholesterol LDL Cholesterol, Calc HDL Cholesterol Cholesterol/HDL Ratio TSH Free T4 < 0.10 L Ur Collection Type Urine Color Urine Clarity Urine pH Ur Specific Fisher Urine Protein Urine Glucose (UA) Urine Ketones Urine Blood Urine Nitrite Urine Bilirubin Urine Urobilinogen (Auto) Ur Leukocyte Esterase Urine RBC Urine WBC Ur Squamous Epith Cells Urine Bacteria Urine Opiates Screen Urine Fentanyl Screen Ur Barbiturates Screen U Amphetamin/Meth Scrn U Benzodiazepines Scrn U Cocaine Metab Screen U Marijuana (THC) Screen Quality Measures Quality Measures VTE prophylaxis Advance care planning discussed with:: patient Assessment & Plan Assessment Current Active Medications: Generic Name Dose Route Start Last Admin Trade Name Freq PRN Reason Stop Dose Admin Acetaminophen 650 mg 09/11/24 23:55 Acetaminophen 325 Mg Tablet PO 10/11/24 23:54 Q6H PRN Fever >100.3 or pain 1-3 Heparin Sodium (Porcine) 5,000 unit 09/12/24 06:00 09/12/24 15:21 Heparin Sod Inj 5000 Unit/Ml Vial SC 09/26/24 05:59 5,000 unit Q8HR QUINTEN Administration Ceftriaxone Sodium/Dextrose 1 gm in 50 mls @ 100 mls/hr 09/12/24 11:09 09/12/24 13:12 Rocephin/D5w 1gm Iv Premix IV 09/19/24 11:08 100 mls/hr QDAY QUINTEN Administration Lactated Ringer's 1,000 mls @ 75 mls/hr 09/12/24 11:10 09/12/24 13:00 Lactated Ringers IV 09/13/24 00:29 0 mls/hr .[id number] QUINTEN Infusion Levetiracetam 500 mg 09/12/24 09:00 09/12/24 09:13 Levetiracetam 250 Mg Tablet PO 10/12/24 08:59 500 mg BID QUINTEN Administration Levothyroxine Sodium 50 mcg 09/12/24 06:00 09/12/24 05:11 Levothyroxine Sodium 25 Mcg Tablet PO 10/12/24 05:59 50 mcg ACBR QUINTEN Administration Ondansetron HCl 4 mg 09/11/24 23:55 09/12/24 12:57 Ondansetron Inj 2 Mg/Ml Inj 2 Ml IV 10/11/24 23:54 4 mg Q6H PRN Administration NAUSEA OR VOMITING Protocol Pantoprazole Sodium 40 mg 09/12/24 12:00 09/12/24 12:57 Pantoprazole 40 Mg Tablet PO 10/12/24 11:59 40 mg QDAY QUINTEN Administration Propranolol HCl 20 mg 09/12/24 01:00 09/12/24 15:21 Propranolol 10 Mg Tablet PO 10/12/24 00:59 20 mg TID QUINTEN Administration Sennosides 1 tab 09/11/24 23:55 Senna Tablet PO 10/11/24 23:54 QDAY PRN constipation Protocol Plan The patient is a 63-year-old female with a previous medical history of hypertension, hyperlipidemia, seizure disorder, thyroid cancer status post thyroidectomy, hypothyroidism who came to the ED due to lower extremity cramps and general weakness. Patient is going to be admitted due to general weakness secondary to hypothyroidism. #Uncomplicated UTI UA Leukocyte esterase positive, urine WBC 800, bacteria 3+ Urine cultures pending ? Started IV ceftriaxone 1 g daily for 7 days (09/12-) #General weakness #Hypothyroid myopathy #Hypothyroidism #History of thyroid cancer, s/p thyroidectomy Multifactorial weakness due to hypothyroidism, decreased oral intake, and diarrhea for past 2 months. According to the patient she was on levothyroxin previously, but it was discontinued by her PCP for the reasons unknown to the patient. Plan: - levothyroxine 50 mcg daily, adjust dose as needed - Physical therapy #Elevated creatinine kinase Creatine kinase 925, most likely in the setting of hypothyroidism. Plan: - monitor daily CBC #CKD stage III Most likely in the setting of longstanding hypertension Plan: - monitor CBC - BP control #Seizure disorder Stable Plan: - resumed home Keppra #Hypertension Patient reports taking propranolol at home, on charting she has filled prescription for propranolol 60mg. Plan: -- propranolol 20 mg TID held #Hyponatremia Moderate hyponatremia. Not symptomatic. Plan: - monitor CMP - encourage oral intake Health maintenance: FEN: cardiac DVT prophylaxis: heparin sc GI prophylaxis: none Dispo: med surg CODE STATUS: Full code The patient's management plan was discussed with my attending physician Dr. Zamarripa. Quita Villasenor, PGY-1 Attending Provider Attestation/Addendum I reviewed labs, imaging, EKG, home medications and prior available records. Face to face evaluation was performed by me. I have personally examined the patient and discussed assessment and plan with the IM team. I reviewed the resident note and agree with the plan with exceptions as below. Generalized weakness Intractable nausea and vomiting Hyponatremia Acute UTI Marijuana use Uncontrolled hypothyroidism CKD stage III Generalized weakness is likely multifactorial in the setting of acute UTI, hyponatremia, dehydration, and hypothyroidism Continue IV fluids Management of nausea/vomiting as needed Monitor sodium level Start Protonix IV twice daily Consult GI for EGD Resume home levothyroxine. Repeat thyroid function tests in 4 to 6 weeks Monitor kidney function. Avoid nephrotoxins Started IV ceftriaxone. Follow-up urine culture
--- NOTE | 2024-09-12 21:20 | PD.IMCONS ---
HPI Data of Consult Requesting Physician: Mac Hook MD Primary Care Provider: Beatrice Cool PA-C Consult Narrative Reason for consult: Nausea pain abdomen diarrhea History of present illness: 64 years female consulted by the ER physician for nausea abdominal pain and recurrent bouts of diarrhea Patient has a history of hypertension hyperlipidemia seizure disorder thyroid carcinoma status post total thyroidectomy Patient was found to have a TSH greater than 150 on admission and a free T4 of only 0.15 Currently on a very low dose of levothyroxine cc:: cc: Mac Hook MD Review of Systems Review of Systems Systems Reviewed: All systems reviewed, normal except as documented Past Medical History Surgical History OTHER SURGICAL HX: As in history of present illness Meds Home Medications and Allergies Home Medications ?Medication ?Instructions ?Recorded ?Confirmed ?Type atorvastatin 20 mg tablet 20 mg PO HS 05/11/20 09/12/24 History alprazolam 0.5 mg tablet (Xanax) 0.5 mg PO BID PRN Anxiety 01/14/23 09/12/24 History benztropine 1 mg tablet 1 mg PO TID 01/14/23 09/12/24 History levetiracetam 1,000 mg tablet 1,000 mg PO BID 01/14/23 04/25/24 History losartan 100 mg tablet 100 mg PO QDAY 01/14/23 04/25/24 History Held on 07/25/23. Instructions: Resume on 07/28/23. Resume if average SBP >140 and/or DBP >90 lumateperone 42 mg capsule 42 mg PO QDAY 01/14/23 04/25/24 History (Caplyta) trazodone 50 mg tablet 50 mg PO HS 01/14/23 04/25/24 History levothyroxine 112 mcg tablet 112 mcg PO 1XD 07/19/23 09/12/24 History oxybutynin chloride 10 mg 10 mg PO QDAY 04/25/24 04/25/24 History tablet,extended release 24 hr Allergies Allergy/AdvReac Type Severity Reaction Status Date / Time ampicillin Allergy Severe Hives Verified 09/03/24 23:56 Penicillins Allergy Severe Hives Verified 09/03/24 23:56 Exam Vital Signs Temp Pulse Resp BP Pulse Ox O2 Del Method FiO2 97.8 F 64 18 157/95 H 94 L Room Air 55 09/12/24 20:00 09/12/24 21:04 09/12/24 20:00 09/12/24 21:04 09/12/24 20:00 09/12/24 20:00 09/12/24 01:27 Routine Respiratory Exam Comments: Normal to auscultation Routine Abdominal Exam Comments: Soft nontender Results Labs 09/12/24 04:17 09/12/24 04:17 Labs: Short CBC 09/12/24 Range/Units 04:17 WBC 12.2 H (3.6-11.0) Thou/mm3 Hgb 14.8 (12.0-16.0) g/dL Hct 39.7 (36.0-46.0) % Plt Count 278 D (140-440) Thou/mm3 BMP 09/12/24 04:17 Sodium 129 L Potassium 4.2 Chloride 89 L Carbon Dioxide 26.0 BUN 13 Creatinine 1.3 Glucose 90 Calcium 8.7 Liver Function 09/12/24 Range/Units 04:17 Total Bilirubin 0.9 (0.3-1.2) mg/dL AST 77 H (0-34) U/L ALT 32 (10-49) U/L Alkaline Phosphatase 113 (46-116) U/L Albumin 4.6 D (3.4-4.8) gm/dL Assessment and Plan Additional Assessment & Plan Additional Plan: Persistent nausea with vomiting and regurgitation of food Plan Fiberoptic esophagogastroduodenoscopy with possible biopsy possible therapeutic intervention under intravenous moderate sedation Further evaluation after above N.p.o. midnight tonight except p.o. meds Informed consent obtained Other medical problems include Thyroid carcinoma status post total thyroidectomy post thyroidectomy hypothyroidism on levothyroxine Positive urine drug screen for marijuana and benzodiazepine Hypertension Hyperlipidemia Seizure disorder Thank you very much for the opportunity to participate in care of this patient
[2024-09-12] MEDS: tiZANidine HCL 2 MG TABLET PO (22:02)
[2024-09-13] VITALS (22 sets, daily range): BP systolic 95–168; BP diastolic 56–112; PULSE 53–68; RESP 10–96; TEMP 36.2–36.7; O2SAT 90–99
[2024-09-13] MEDS: GABAPENTIN 100 MG CAPSULE PO (00:59)
[2024-09-13] MEDS: ALPRazoLAM 0.25 MG TABLET 0.5 MG PO (00:59)
[2024-09-13] MEDS: PROPRANOLOL 10 MG TABLET 20 MG PO ×2 (05:13→13:12)
[2024-09-13] MEDS: HEPARIN SOD INJ 5000 UNIT/ML VIAL SC ×3 (05:15→21:19)
[2024-09-13] MEDS: LEVOTHYROXINE SODIUM 25 MCG TABLET 50 MCG PO (05:15)
[2024-09-13 05:49] LABS: Basophils % (Auto) 0 % (0-2.5); Eosinophils # (Auto) 0.1 Thou/mm3 (0.0-0.5); Eosinophils % (Auto) 1 % (0-10); Hematocrit 33.2 % (36.0-46.0); Hemoglobin 12.6 g/dL (12.0-16.0); Immature Granulocytes % (Auto) 0 % (0-0); Immature Granulocytes Auto 0.02 Thou/mm3 (0.00-0.00); Lymphocytes # (Auto) 4.1 Thou/mm3 (1.0-4.8); Lymphocytes % (Auto) 38 % (10-50); Mean Corpuscular Hemoglobin 36.4 pg (25.0-35.0); Mean Corpuscular Volume 96 fL (80-100); Monocytes # (Auto) 0.8 Thou/mm3 (0.0-0.8); Monocytes % (Auto) 7 % (0-12); Neutrophils # (Auto) 5.8 Thou/mm3 (1.8-7.7); Neutrophils % (Auto) 54 % (37-80); Nucleated Red Blood Cell % 0 /100 WBC (0); Platelet Count 226 Thou/mm3 (140-440); RDW Standard Deviation 45.4 fL (36.4-46.3); Red Blood Count 3.46 Miln/mm3 (4.00-5.20); White Blood Count 10.8 Thou/mm3 (3.6-11.0)
--- NOTE | 2024-09-13 05:50 | PC.NURSE ---
Notified Dr. Pennington regarding the patient being NPO. Patient has a scheduled Synthroid, Propanalol, and heparin order. Per Dr. Pennington, go ahead and give the synthroid and propanalol to the patient. Also, notified that the patient had a HR of 55. Per Dr. pennington it is okay to give the propanolol 20mg
[2024-09-13 07:55] LABS: Alanine Aminotransferase 34 U/L (10-49); Albumin, Serum 4.3 gm/dL (3.4-4.8); Albumin/Globulin Ratio 1.6 (1.2-2.2); Alkaline Phosphatase 99 U/L (46-116); Anion Gap 12 (7-16); Aspartate Amino Transferase 92 U/L (0-34); BUN/Creatinine Ratio 8 Ratio (12-20); Bilirubin,Total 0.8 mg/dL (0.3-1.2); Blood Urea Nitrogen 14 mg/dL (9-23); Calcium 9.1 mg/dL (8.3-10.6); Calcium (Corrected) 9.1 mg/dL (8.5-10.1); Carbon Dioxide 26.5 mMol/L (20.0-31.0); Chloride 90 mMol/L (98-107); Creatinine (Component) 1.7 mg/dL (0.6-1.3); Estimated Creatinine Clearance 23.3 mL/min (>60); Globulin 2.7 gm/dL (2.3-3.5); Glucose 72 mg/dL (74-106); Osmolality,Calculated 256 (275-295); Potassium 3.7 mMol/L (3.4-5.1); Sodium 128 mMol/L (136-145); eGFR 33 See Note
[2024-09-13] MEDS: levETIRAcetam 250 MG TABLET 500 MG PO ×2 (09:57→21:19)
[2024-09-13] MEDS: PANTOPRAZOLE 40 MG TABLET PO (09:57)
[2024-09-13] MEDS: cefTRIAXone/D5w 1gm IV premix 1 GM/50 ML BAG IV (09:57)
--- NOTE | 2024-09-13 10:17 | PC.SS ---
Follow up note: GI consult pending. Pt is possible d/c to SNF.
--- NOTE | 2024-09-13 10:55 | PC.SS ---
SS has sent inquiry to the local SNF using [facility] care.
--- NOTE | 2024-09-13 11:53 | ESCONSULT_ITS ---
HPI Data of Consult Consult date: 09/13/24 Requesting Physician: Cem Zamarripa MD Admitting Provider: Mac Hook MD Attending Provider: Cem Zamarripa MD Primary Care Provider: Beatrice Cool PA-C Consult Narrative Reason for consult: NERY, hyponatremia History of present illness: Ms. Tan is a 63 year-old female with PMHx of HTN, HLD, seizure disorder, osteoporosis, thyroid cancer s/p thyroidectomy, hypothyroidism, insomina, presenting to ED with lower extremity cramps and generalized weakness. She reports on going diarrhea, for 2 months, worsened over the last 2 weeks, several times day. Reports brown/green, non-bloody emesis, not associated with abdominal pain or diarrhea or constipation or fever. Her PCP recently discontinued her thyroid medications which she has not been taking, which she currently not taking. Otherwise, no recent changes in her meds. She has a history of uterine cancer, s/p chemoradiation. Reports incidents of urinary retantion post chemoradiation and recurrent UTIs. Currently denies any urinary symptoms including hematuria, dysuria, urgency or frequency. Current vitals showing BP 140/90, HR 62, RR 14, T97.5, satting 95% on room air. She came with CR 1.3 which increased to 1.7 since admission, currently on 1L NS at 100 cc/h. EGFR 46 > 33, BUN normal. Sodium 129 > 128, Chloride 89 > 90, serum osm 259 > 256. AST 92, ALT normal. TSH 150, free T4 0.10. CBC relatively WNL. UA showed WBC 808, bacteria 3+, LE +, RBC 2+. Urine output not recorded. CXR Suspicious for early pneumonia left base. EKG sinus rhythm without acute ST changes. Nephrology was consulted for managment of NERY and hyponatremia. Currently on CTX for UTI and NS maintanance but showing worsening renal function. cc:: cc: Cem Zamarripa MD Exam Vital Signs Temp Pulse Resp BP Pulse Ox O2 Del Method FiO2 97.5 F 57 L 14 146/95 H 95 Room Air 55 09/13/24 11:35 09/13/24 11:35 09/13/24 11:35 09/13/24 11:35 09/13/24 11:35 09/13/24 11:35 09/12/24 01:27 Narrative Exam GENERAL * Normal-appearing elderly female, NAD. HEENT * NCAT.?ANDREIA. Oral mucosa is moist. Patent Nares NECK * Supple, nontender, no thyromegaly, no meningismus, no JVD, no step offs CHEST * RRR, no m/g/r * CTAB, no w/r/r. Symmetrical chest rise. No intercostal subcostal retraction * Atraumatic, nontender, no crepitus, symmetrical expansion. ABDOMEN * Soft, flat, nontender. No guarding/rebound tenderness/masses. * Bowel sounds presents EXTREMITIES * No edema/cyanosis.? SKIN * Warm and dry, no jaundice/rashes. NEUROMUSCULAR * No lumbar or midline, no CVA, no paraspinal muscle spasm or tenderness. * Moves all 4 extremities well, with full ROM and good CSM. * GEORGE x4, CN II-XII grossly intact. * No focal neurologic deficits. PSYCHIATRY * Normal mood and affect, cooperative, no SI or HI or hallucinations. Results Labs 09/14/24 04:10 09/14/24 04:10 Labs: Short CBC 09/13/24 Range/Units 04:39 WBC 10.8 (3.6-11.0) Thou/mm3 Hgb 12.6 D (12.0-16.0) g/dL Hct 33.2 L (36.0-46.0) % Plt Count 226 D (140-440) Thou/mm3 BMP 09/13/24 07:05 Sodium 128 L Potassium 3.7 D Chloride 90 L Carbon Dioxide 26.5 BUN 14 Creatinine 1.7 H Glucose 72 L Calcium 9.1 Liver Function 09/13/24 Range/Units 07:05 Total Bilirubin 0.8 (0.3-1.2) mg/dL AST 92 H (0-34) U/L ALT 34 (10-49) U/L Alkaline Phosphatase 99 (46-116) U/L Albumin 4.3 (3.4-4.8) gm/dL Quality Measures Quality Measures VTE prophylaxis Advance care planning discussed with:: patient Medications Home Medications and Allergies Home Medications ?Medication ?Instructions ?Recorded ?Confirmed ?Type atorvastatin 20 mg tablet 20 mg PO HS 05/11/20 5 History Held on 09/14/24. Instructions: Resume on 09/21/24. alprazolam 0.5 mg tablet (Xanax) 0.5 mg PO BID PRN Anx iety 01/14/23 09/12/24 History benztropine 1 mg tablet 1 mg PO TID 01/14/23 5 History Held on 09/14/24. Instructions: Resume on 09/21/24. Per Patient he is not taking Allergies Allergy/AdvReac Type Severity Reaction Status Date / Time ampicillin Allergy Severe Hives Verified 09/03/24 23:56 Penicillins Allergy Severe Hives Verified 09/03/24 23:56 Visit Medications Acetaminophen (Acetaminophen 325 Mg Tablet) 650 mg PO Q6H PRN PRN Reason: Fever >100.3 or pain 1-3 Stop: 10/11/24 23:54 Heparin Sodium (Porcine) (Heparin Sod Inj 5000 Unit/Ml Vial) 5,000 unit SC Q8HR [facility] Stop: 09/26/24 05:59 Last Admin: 09/13/24 05:15 Dose: 5,000 unit Ceftriaxone Sodium/Dextrose (Rocephin/D5w 1gm Iv Premix) 1 gm in 50 mls @ 100 mls/hr IV QDAY [facility] Stop: 09/19/24 11:08 Last Admin: 09/13/24 09:57 Dose: 100 mls/hr Sodium Chloride (Ns) 1,000 mls @ 100 mls/hr IV .Q10H ONE Stop: 09/13/24 21:35 Levetiracetam (Levetiracetam 250 Mg Tablet) 500 mg PO BID [facility] Stop: 10/12/24 08:59 Last Admin: 09/13/24 09:57 Dose: 500 mg Levothyroxine Sodium (Levothyroxine Sodium 25 Mcg Tablet) 50 mcg PO ACBR [facility] Stop: 10/12/24 05:59 Last Admin: 09/13/24 05:15 Dose: 50 mcg Ondansetron HCl (Ondansetron Inj 2 Mg/Ml Inj 2 Ml) 4 mg IV Q6H PRN; Protocol PRN Reason: NAUSEA OR VOMITING Stop: 10/11/24 23:54 Last Admin: 09/12/24 12:57 Dose: 4 mg Pantoprazole Sodium (Pantoprazole 40 Mg Tablet) 40 mg PO QDAY [facility] Stop: 10/12/24 11:59 Last Admin: 09/13/24 09:57 Dose: 40 mg Propranolol HCl (Propranolol 10 Mg Tablet) 20 mg PO TID QUINTEN Stop: 10/12/24 00:59 Last Admin: 09/13/24 05:13 Dose: 20 mg Sennosides (Senna Tablet) 1 tab PO QDAY PRN; Protocol PRN Reason: constipation Stop: 10/11/24 23:54 Discontinued Medications Alprazolam (Alprazolam 0.25 Mg Tablet) 0.5 mg PO X1 ONE Stop: 09/13/24 00:35 Last Admin: 09/13/24 00:59 Dose: 0.5 mg Gabapentin (Gabapentin 100 Mg Capsule) 100 mg PO X1 ONE Stop: 09/13/24 00:35 Last Admin: 09/13/24 00:59 Dose: 100 mg Sodium Chloride (Ns) 1,000 mls @ 999 mls/hr IV .Q1H1M ONE Stop: 09/11/24 20:23 Last Admin: 09/11/24 22:40 Dose: 999 mls/hr Ceftriaxone Sodium 1,000 mg/ (Sodium Chloride) 50 mls @ 100 mls/hr IV X1 ONE Stop: 09/11/24 22:19 Last Admin: 09/11/24 22:39 Dose: 100 mls/hr Azithromycin 500 mg/ Sodium (Chloride) 250 mls @ 250 mls/hr IV X1 ONE Stop: 09/11/24 23:54 Last Admin: 09/12/24 00:06 Dose: 250 mls/hr Lactated Ringer's (Lactated Ringers) 1,000 mls @ 75 mls/hr IV .[id number] [facility] Stop: 09/13/24 00:29 Last Infusion: 09/12/24 13:00 Dose: 0 mls/hr Ketorolac Tromethamine (Ketorolac Inj 30 Mg/Ml Vial) 15 mg IVP X1 ONE Stop: 09/11/24 19:24 Last Admin: 09/11/24 22:38 Dose: 15 mg Melatonin (Melatonin 3 Mg Tablet) 3 mg PO X1 ONE Stop: 09/13/24 00:14 Last Admin: 09/13/24 00:58 Dose: Not Given Morphine Sulfate (Morphine Sulf Inj 10 Mg/Ml Vial) 4 mg IVP X1 ONE Stop: 09/11/24 19:24 Last Admin: 09/11/24 22:38 Dose: 4 mg Ondansetron HCl (Ondansetron Inj 2 Mg/Ml Inj 2 Ml) 4 mg IV X1 ONE; Protocol Stop: 09/11/24 19:24 Last Admin: 09/11/24 22:39 Dose: 4 mg Tizanidine HCl (Tizanidine Hcl 2 Mg Tablet) 2 mg PO X1 ONE Stop: 09/12/24 21:38 Last Admin: 09/12/24 22:02 Dose: 2 mg Tizanidine HCl (Tizanidine Hcl 2 Mg Tablet) 2 mg PO X1 ONE Stop: 09/13/24 00:13 Last Admin: 09/13/24 00:58 Dose: Not Given Assessment & Plan Plan This is a 63 year-old female with PMHx of HTN, HLD, seizure disorder, osteoporosis, thyroid cancer s/p thyroidectomy, hypothyroidism, insomina, presenting to ED with lower extremity cramps and generalized weakness and 2 months of diarrhea. NERY likely 2/2 dehydration and Rhabdo. She received total of 2L NS but may tolerated additional fluids. Pre-renal NERY Rhabdomyeolysis Hypoosmolar hyponatermia, mild Likely secondary to rhabdo, dehydration in settings of prolonged diarrhea and NERY. She received a total of 2 L. No urine output recorded. CR 1.3 > 1.7. eGFR 46 > 33. Sodium 129 > 128. CK 925 UA showed WBC 808, bacteria 3+, LE +, RBC 2+. Likely 2/2 UTI. ? Agreed with NS maintenance ? Continue treating UTI ? Renally dose meds, avoid overdiuresis and NEPHROTOXINS ? Daily CMP Hypochloremia Likely GI loss 2/2 diarrhea. Anticipate improvement with NS as above. General weakness Hypothyroid myopathy Hypothyroidism History of thyroid cancer, s/p thyroidectomy Elevated creatinine kinase Seizure disorder HTN ? Managed by primary team. Thank you for the opportunity to participate in the care of this patient. Patient case was discussed with attending, Dr. Cobb. Juan Carlos Garcia DO PGYI Attending Provider Attestation/Addendum Patient seen and examined with resident physician Dr. Rangel. Note reviewed, agree with findings and recommendations. Patient admitted with fall, weakness and noted to have NERY probably related to prerenal azotemia and also mild rhabdomyolysis. Noted to have hypochloremia, hyponatremia from GI losses. Continue with IV fluids with close monitoring of urine output. She will benefit from going to rehab. No family at the Thank you Cem for allowing me to participate in the care of Dominick
[2024-09-13] MEDS: SODIUM CHLORIDE 0.9% 1000 ML 1,000 ML 100 ML IV (13:12)
--- NOTE | 2024-09-13 13:14 | PD.RESPRO ---
Documentation for date of: 09/13/24 Subjective Subjective Interval history: Patient examined at bedside. Complains of nausea, decreased appetite, and legs cramps still present. Overnight she received 2 mg tizanidine, Xanax 0.5 mg, gabapentin 100 mg for her severe cramps. Mild hyponatremia 128, creatinine uptrended to 1.7 from 1.3--will consult nephro. Yesterday she received 1L LR maintainence. Continue with levothyroxine 50 mcg. Continue IV Rocephin for UTI. Urine cultures pending. Due to previous history of gastric ulcers, vomiting, and weight loss GI was consulted. Patient will undergo EGD most likely today. Replete electrolytes as needed. Exam Vital Signs Temp Pulse Resp BP Pulse Ox O2 Del Method FiO2 97.5 F 57 L 14 146/95 H 95 Room Air 55 09/13/24 11:35 09/13/24 11:35 09/13/24 11:35 09/13/24 11:35 09/13/24 11:35 09/13/24 11:35 09/12/24 01:27 Narrative Exam General: elderly lady, Awake and in no acute distress. HEENT: Normocephalic, atraumatic, mucous membranes dry. Heart: Regular rate and rhythm, no murmurs. Lungs: Clear to auscultation with no wheezing or crackles. Abdomen: Soft, nondistended, nontender, positive bowel sounds. ?No guarding or rebound tenderness. Neurologic: Alert and oriented x3, general weakness, Aox3 Extremities: No edema. Skin: No rash or ecchymoses. Dry skin. Objective Labs 09/14/24 04:10 09/14/24 04:10 Labs: Laboratory Results - last 24 hr 09/13/24 09/13/24 04:39 07:05 WBC 10.8 RBC 3.46 L Hgb 12.6 D Hct 33.2 L MCV 96 MCH 36.4 H MCHC 38.0 H RDW Std Deviation 45.4 Plt Count 226 D Neut % (Auto) 54 Lymph % (Auto) 38 Whitman % (Auto) 7 Eos % (Auto) 1 Baso % (Auto) 0 Neut # (Auto) 5.8 Lymph # (Auto) 4.1 Whitman # (Auto) 0.8 Eos # (Auto) 0.1 Baso # (Auto) 0.0 Immature Gran # (Auto) 0.02 H Absolute Nucleated RBC 0.00 Immature Gran % 0 Nucleated RBC % 0 Sodium 128 L Potassium 3.7 D Chloride 90 L Carbon Dioxide 26.5 Anion Gap 12 BUN 14 Creatinine 1.7 H Estim Creat Clear Calc 23.3 L eGFR 33 L BUN/Creatinine Ratio 8 L Glucose 72 L Calculated Osmolality 256 L Calcium 9.1 Corrected Calcium 9.1 Total Bilirubin 0.8 AST 92 H ALT 34 Alkaline Phosphatase 99 Total Protein 7.0 Albumin 4.3 Globulin 2.7 Albumin/Globulin Ratio 1.6 Quality Measures Quality Measures VTE prophylaxis Advance care planning discussed with:: patient Assessment & Plan Assessment Current Active Medications: Generic Name Dose Route Start Last Admin Trade Name Freq PRN Reason Stop Dose Admin Acetaminophen 650 mg 09/11/24 23:55 Acetaminophen 325 Mg Tablet PO 10/11/24 23:54 Q6H PRN Fever >100.3 or pain 1-3 Heparin Sodium (Porcine) 5,000 unit 09/12/24 06:00 09/13/24 05:15 Heparin Sod Inj 5000 Unit/Ml Vial SC 09/26/24 05:59 5,000 unit Q8HR QUINTEN Administration Ceftriaxone Sodium/Dextrose 1 gm in 50 mls @ 100 mls/hr 09/12/24 11:09 09/13/24 09:57 Rocephin/D5w 1gm Iv Premix IV 09/19/24 11:08 100 mls/hr QDAY QUINTEN Administration Sodium Chloride 1,000 mls @ 100 mls/hr 09/13/24 11:36 Ns IV 09/13/24 21:35 .Q10H ONE Levetiracetam 500 mg 09/12/24 09:00 09/13/24 09:57 Levetiracetam 250 Mg Tablet PO 10/12/24 08:59 500 mg BID QUINTEN Administration Levothyroxine Sodium 50 mcg 09/12/24 06:00 09/13/24 05:15 Levothyroxine Sodium 25 Mcg Tablet PO 10/12/24 05:59 50 mcg ACBR QUINTEN Administration Ondansetron HCl 4 mg 09/11/24 23:55 09/12/24 12:57 Ondansetron Inj 2 Mg/Ml Inj 2 Ml IV 10/11/24 23:54 4 mg Q6H PRN Administration NAUSEA OR VOMITING Protocol Pantoprazole Sodium 40 mg 09/12/24 12:00 09/13/24 09:57 Pantoprazole 40 Mg Tablet PO 10/12/24 11:59 40 mg QDAY QUINTEN Administration Propranolol HCl 20 mg 09/12/24 01:00 09/13/24 05:13 Propranolol 10 Mg Tablet PO 10/12/24 00:59 20 mg TID QUINTEN Administration Sennosides 1 tab 09/11/24 23:55 Senna Tablet PO 10/11/24 23:54 QDAY PRN constipation Protocol Plan The patient is a 63-year-old female with a previous medical history of hypertension, hyperlipidemia, seizure disorder, thyroid cancer status post thyroidectomy, hypothyroidism who came to the ED due to lower extremity cramps and general weakness. Patient is going to be admitted due to general weakness secondary to hypothyroidism. #Hx intractable nausea, vomiting #Hx gastric ulcers #Unintentional weight loss -Consulted GI Dr. Haney -NPO for EGD today #Uncomplicated UTI UA Leukocyte esterase positive, urine WBC 800, bacteria 3+ Urine cultures pending ? Started IV ceftriaxone 1 g daily for 7 days (09/12-) #General weakness #Hypothyroid myopathy #Hypothyroidism #History of thyroid cancer, s/p thyroidectomy Multifactorial weakness due to hypothyroidism, decreased oral intake, and diarrhea for past 2 months. According to the patient she was on levothyroxin previously, but it was discontinued by her PCP for the reasons unknown to the patient. Plan: - levothyroxine 50 mcg daily, adjust dose as needed - Physical therapy: Recommend that patient go to SNF as she is high fall risk. #Elevated creatinine kinase Creatine kinase 925, most likely in the setting of hypothyroidism. Plan: - monitor daily CBC #CKD stage III Most likely in the setting of longstanding hypertension Plan: - monitor CBC - BP control #Seizure disorder Stable Plan: - resumed home Keppra #Hypertension Patient reports taking propranolol at home, on charting she has filled prescription for propranolol 60mg. Plan: -- propranolol 20 mg TID held #Hyponatremia Moderate hyponatremia. Not symptomatic. Plan: - monitor CMP - encourage oral intake Health maintenance: FEN: cardiac DVT prophylaxis: heparin sc GI prophylaxis: none Dispo: med surg CODE STATUS: Full code The patient's management plan was discussed with my attending physician Dr. Zamarripa. Quita Villasenor, PGY-1 Attending Provider Attestation/Addendum I reviewed labs, imaging, EKG, home medications and prior available records. Face to face evaluation was performed by me. I have personally examined the patient and discussed assessment and plan with the IM team. I reviewed the resident note and agree with the plan with exceptions as below. Generalized weakness Intractable nausea and vomiting Hyponatremia Acute UTI Marijuana use Uncontrolled hypothyroidism NERY on CKD stage III Generalized weakness is likely multifactorial in the setting of acute UTI, hyponatremia, dehydration, and hypothyroidism Continue IV fluids Management of nausea/vomiting as needed Monitor sodium level: Increased. Continue IV fluids. Consulted nephrology Start Protonix IV twice daily Consult GI for EGD Resume home levothyroxine. Repeat thyroid function tests in 4 to 6 weeks Monitor kidney function: Creatinine increased. Will continue IV fluids. Avoid nephrotoxins Started IV ceftriaxone. Follow-up urine culture Ordered PT: Recommended SNF
[2024-09-13] MEDS: amLODIPine BESYLATE 5 MG TABLET PO (17:49)
--- NOTE | 2024-09-13 19:56 | PC.NURSE ---
Dr. Haney's team arrived on unit to [facility] patient for her EGD procedure via [place]co[place]. Patient was saline locked and is able to ambulate to the [facility] from bed via cane and 1 person assist. Patient showed no sign of distress or trouble breathing.
--- NOTE | 2024-09-13 20:50 | PC.NURSE ---
Patient arrived back to unit via gurney from EGD procedure. Patient was able to ambulate back from [facility] to bed using her cane. Patient showed no sign of distress or shortness of breath.
[2024-09-14] VITALS (7 sets, daily range): BP systolic 122–150; BP diastolic 72–95; PULSE 62–97; RESP 12–95; TEMP 36.2–36.9; O2SAT 92–99
[2024-09-14] MEDS: GABAPENTIN 100 MG CAPSULE PO (01:13)
[2024-09-14] MEDS: ALPRazoLAM 0.25 MG TABLET 0.5 MG PO (01:13)
[2024-09-14 05:20] LABS: Basophils % (Auto) 0 % (0-2.5); Eosinophils % (Auto) 0 % (0-10); Hematocrit 34.7 % (36.0-46.0); Hemoglobin 12.9 g/dL (12.0-16.0); Immature Granulocytes % (Auto) 0 % (0-0); Immature Granulocytes Auto 0.02 Thou/mm3 (0.00-0.00); Lymphocytes # (Auto) 2.7 Thou/mm3 (1.0-4.8); Lymphocytes % (Auto) 35 % (10-50); Mean Corpuscular HGB Conc 37.2 g/dl (31.0-37.0); Mean Corpuscular Hemoglobin 35.7 pg (25.0-35.0); Mean Corpuscular Volume 96 fL (80-100); Monocytes # (Auto) 0.6 Thou/mm3 (0.0-0.8); Monocytes % (Auto) 8 % (0-12); Neutrophils # (Auto) 4.4 Thou/mm3 (1.8-7.7); Neutrophils % (Auto) 57 % (37-80); Nucleated Red Blood Cell % 0 /100 WBC (0); Platelet Count 209 Thou/mm3 (140-440); RDW Standard Deviation 45.4 fL (36.4-46.3); Red Blood Count 3.61 Miln/mm3 (4.00-5.20); White Blood Count 7.8 Thou/mm3 (3.6-11.0)
[2024-09-14] MEDS: LEVOTHYROXINE SODIUM 25 MCG TABLET 50 MCG PO (05:22)
[2024-09-14] MEDS: HEPARIN SOD INJ 5000 UNIT/ML VIAL SC ×2 (05:22→15:04)
[2024-09-14 05:47] LABS: Alanine Aminotransferase 43 U/L (10-49); Albumin, Serum 4.3 gm/dL (3.4-4.8); Albumin/Globulin Ratio 1.6 (1.2-2.2); Alkaline Phosphatase 105 U/L (46-116); Anion Gap 13 (7-16); Aspartate Amino Transferase 111 U/L (0-34); BUN/Creatinine Ratio 8 Ratio (12-20); Bilirubin,Total 0.8 mg/dL (0.3-1.2); Blood Urea Nitrogen 11 mg/dL (9-23); Calcium 8.6 mg/dL (8.3-10.6); Calcium (Corrected) 8.6 mg/dL (8.5-10.1); Carbon Dioxide 25.4 mMol/L (20.0-31.0); Chloride 96 mMol/L (98-107); Creatinine (Component) 1.4 mg/dL (0.6-1.3); Estimated Creatinine Clearance 28.2 mL/min (>60); Globulin 2.7 gm/dL (2.3-3.5); Glucose 81 mg/dL (74-106); Osmolality,Calculated 266 (275-295); Sodium 134 mMol/L (136-145); eGFR 42 See Note
[2024-09-14] MEDS: POTASSIUM CHL 10 mEq IVPB 10 MEQ/100 ML BAG 100 MEQ IV ×4 (07:45→12:44)
[2024-09-14] MEDS: POTASSIUM CHLORIDE 20 mEq TABCR 40 MEQ PO (07:45)
--- NOTE | 2024-09-14 07:54 | PC.NURSE ---
Hospitalist at bedside, nurse made them aware of UA cx results. no new orders given.
--- NOTE | 2024-09-14 08:11 | ESPR_ITS ---
Documentation for date of: 09/14/24 Subjective Subjective Interval history: This is a 63 year-old female with PMHx of HTN, HLD, seizure disorder, osteoporosis, thyroid cancer s/p thyroidectomy, hypothyroidism, insomina, presenting to ED with lower extremity cramps and generalized weakness. She reports on going diarrhea, for 2 months, worsened over the last 2 weeks, several times day. Reports brown/green, non-bloody emesis, not associated with abdominal pain or diarrhea or constipation or fever. Her PCP recently discontinued her thyroid medications which she has not been taking, which she currently not taking. Otherwise, no recent changes in her meds. She has a history of uterine cancer, s/p chemoradiation. Reports incidents of urinary retantion post chemoradiation and recurrent UTIs. Currently denies any urinary symptoms including hematuria, dysuria, urgency or frequency. Current vitals showing BP 140/90, HR 62, RR 14, T97.5, satting 95% on room air. She came with CR 1.3 which increased to 1.7 since admission, currently on 1L NS at 100 cc/h. EGFR 46 > 33, BUN normal. Sodium 129 > 128, Chloride 89 > 90, serum osm 259 > 256. AST 92, ALT normal. TSH 150, free T4 0.10. CBC relatively WNL. UA showed WBC 808, bacteria 3+, LE +, RBC 2+. Urine output not recorded. CXR Suspicious for early pneumonia left base. EKG sinus rhythm without acute ST changes. Nephrology was consulted for managment of NERY and hyponatremia. Currently on CTX for UTI and NS maintanance but showing worsening renal function. 09/14/2024 Examined at bedside. Slept well with XANAX and GABAPENTIN. Diarrhea resolved. Denies fever, chills, headaches, chest pain, sob, cough, GI or urinary symptoms. Renal function improved with fluids. CR 1.7 > 1.4, EGFR 33 > 42. Urine output 1.6L. Sodium 134. Potassium 3.0, repleted. Encouraged oral fluids. Exam Vital Signs Temp Pulse Resp BP Pulse Ox O2 Del Method O2 Flow Rate 97.8 F 85 14 127/89 H 98 Room Air 3 09/14/24 08:00 09/14/24 04:00 09/14/24 08:00 09/14/24 08:00 09/14/24 08:00 09/14/24 08:00 09/13/24 20:29 FiO2 55 09/12/24 01:27 Narrative Exam GENERAL * Normal-appearing elderly female, NAD. HEENT * NCAT.?ANDREIA. Oral mucosa is moist. Patent Nares NECK * Supple, nontender, no thyromegaly, no meningismus, no JVD, no step offs CHEST * RRR, no m/g/r * CTAB, no w/r/r. Symmetrical chest rise. No intercostal subcostal retraction * Atraumatic, nontender, no crepitus, symmetrical expansion. ABDOMEN * Soft, flat, nontender. No guarding/rebound tenderness/masses. * Bowel sounds presents EXTREMITIES * No edema/cyanosis.? SKIN * Warm and dry, no jaundice/rashes. NEUROMUSCULAR * No lumbar or midline, no CVA, no paraspinal muscle spasm or tenderness. * Moves all 4 extremities well, with full ROM and good CSM. * GEORGE x4, CN II-XII grossly intact. * No focal neurologic deficits. PSYCHIATRY * Normal mood and affect, cooperative, no SI or HI or hallucinations. Objective Labs 09/14/24 04:10 09/14/24 04:10 Labs: Laboratory Results - last 24 hr 09/14/24 04:10 WBC 7.8 RBC 3.61 L Hgb 12.9 Hct 34.7 L MCV 96 MCH 35.7 H MCHC 37.2 H RDW Std Deviation 45.4 Plt Count 209 Neut % (Auto) 57 Lymph % (Auto) 35 Harrison % (Auto) 8 Eos % (Auto) 0 Baso % (Auto) 0 Neut # (Auto) 4.4 Lymph # (Auto) 2.7 Harrison # (Auto) 0.6 Eos # (Auto) 0.0 Baso # (Auto) 0.0 Immature Gran # (Auto) 0.02 H Absolute Nucleated RBC 0.00 Immature Gran % 0 Nucleated RBC % 0 Sodium 134 L Potassium 3.0 L D Chloride 96 L Carbon Dioxide 25.4 Anion Gap 13 BUN 11 Creatinine 1.4 H Estim Creat Clear Calc 28.2 L eGFR 42 L BUN/Creatinine Ratio 8 L Glucose 81 Calculated Osmolality 266 L Calcium 8.6 Corrected Calcium 8.6 Total Bilirubin 0.8 AST 111 H ALT 43 Alkaline Phosphatase 105 Total Protein 7.0 Albumin 4.3 Globulin 2.7 Albumin/Globulin Ratio 1.6 Quality Measures Quality Measures VTE prophylaxis Advance care planning discussed with:: patient Assessment & Plan Assessment Current Active Medications: Generic Name Dose Route Start Last Admin Trade Name Freq PRN Reason Stop Dose Admin Acetaminophen 650 mg 09/11/24 23:55 Acetaminophen 325 Mg Tablet PO 10/11/24 23:54 Q6H PRN Fever >100.3 or pain 1-3 Amlodipine Besylate 5 mg 09/13/24 16:30 09/13/24 17:49 Amlodipine Besylate 5 Mg Tablet PO 10/13/24 16:29 5 mg QDAY QUINTEN Administration Heparin Sodium (Porcine) 5,000 unit 09/12/24 06:00 09/14/24 05:22 Heparin Sod Inj 5000 Unit/Ml Vial SC 09/26/24 05:59 5,000 unit Q8HR QUINTEN Administration Ceftriaxone Sodium/Dextrose 1 gm in 50 mls @ 100 mls/hr 09/12/24 11:09 09/13/24 09:57 Rocephin/D5w 1gm Iv Premix IV 09/19/24 11:08 100 mls/hr QDAY QUINTEN Administration Potassium Chloride 10 meq in 100 mls @ 100 mls/hr 09/14/24 07:30 09/14/24 07:45 Kcl Ivpb IV 09/14/24 11:29 100 mls/hr Q1H QUINTEN Administration Levetiracetam 500 mg 09/12/24 09:00 09/13/24 21:19 Levetiracetam 250 Mg Tablet PO 10/12/24 08:59 500 mg BID QUINTEN Administration Levothyroxine Sodium 50 mcg 09/12/24 06:00 09/14/24 05:22 Levothyroxine Sodium 25 Mcg Tablet PO 10/12/24 05:59 50 mcg ACBR QUINTEN Administration Ondansetron HCl 4 mg 09/11/24 23:55 09/12/24 12:57 Ondansetron Inj 2 Mg/Ml Inj 2 Ml IV 10/11/24 23:54 4 mg Q6H PRN Administration NAUSEA OR VOMITING Protocol Pantoprazole Sodium 40 mg 09/12/24 12:00 09/13/24 09:57 Pantoprazole 40 Mg Tablet PO 10/12/24 11:59 40 mg QDAY QUINTEN Administration Propranolol HCl 20 mg 09/12/24 01:00 09/13/24 13:12 Propranolol 10 Mg Tablet PO 10/12/24 00:59 20 mg TID QUINTEN Administration Sennosides 1 tab 09/11/24 23:55 Senna Tablet PO 10/11/24 23:54 QDAY PRN constipation Protocol Plan This is a 63 year-old female with PMHx of HTN, HLD, seizure disorder, osteoporosis, thyroid cancer s/p thyroidectomy, hypothyroidism, insomina, presenting to ED with lower extremity cramps and generalized weakness and 2 months of diarrhea. NERY likely 2/2 dehydration and Rhabdo. Imporved with IVF. Encourage oral hydration. Pre-renal NERY Rhabdomyeolysis Hypoosmolar hyponatermia, mild Likely secondary to rhabdo, dehydration in settings of prolonged diarrhea and NERY. UA showed WBC 808, bacteria 3+, LE +, RBC 2+. Likely 2/2 UTI. Renal function improved with IVF. CR 1.4, EGFR 42. Ucx grew Strep agalactiae, sensitivity pending, on CTX now. ? Encourage oral hydration. ? Continue treating UTI ? Renally dose meds, avoid overdiuresis and NEPHROTOXINS ? Daily CMP Hypokalemia Likely GI losses. Potassium 3.0 ? Repleted ? Daily labs Hypochloremia (improving) Likely GI loss 2/2 diarrhea. Anticipate improvement with NS as above. General weakness Hypothyroid myopathy Hypothyroidism History of thyroid cancer, s/p thyroidectomy Elevated creatinine kinase Seizure disorder HTN ? Managed by primary team. Thank you for the opportunity to participate in the care of this patient. Patient case was discussed with attending, Dr. Cobb. Juan Carlos Garcia DO PGYI Attending Provider Attestation/Addendum Patient seen and examined with resident physician Dr. Rangel. Note reviewed, agree with findings and recommendations. Patient admitted with fall, weakness and noted to have NERY probably related to prerenal azotemia and also mild rhabdomyolysis. Noted to have hypochloremia, hyponatremia from GI losses. Continue with IV fluids with close monitoring of urine output. She will benefit from going to rehab. No family around. Hemoglobin 12.9 Sodium 134, potassium 3.0, creatinine 1.4, AST 111 Continue with IV fluids, replace electrolytes Thank you Cem for allowing me to participate in the care of Ms. Tan
[2024-09-14] MEDS: PANTOPRAZOLE 40 MG TABLET PO (08:35)
[2024-09-14] MEDS: levETIRAcetam 250 MG TABLET 500 MG PO (08:35)
[2024-09-14] MEDS: amLODIPine BESYLATE 5 MG TABLET PO (08:35)
[2024-09-14] MEDS: cefTRIAXone/D5w 1gm IV premix 1 GM/50 ML BAG IV (09:32)
--- NOTE | 2024-09-14 13:16 | PD.RESPRO ---
Documentation for date of: 09/14/24 Subjective Subjective Interval history: Patient examined at bedside. No major complaints. Leg cramps have improved after receiving gabapentin 100 mg x 1 overnight. Patient is requesting to be prescribed gabapentin at discharge. Mild hyponatremia resolved with fluids--today 134, creatinine improved to 1.4 from 1.7. Will continue maintenance fluids. Continue with levothyroxine 50 mcg. Continue IV Rocephin for UTI. Urine cultures pending. EGD completed yesterday results showed esophagitis with gastritis. Biopsies are pending will start patient on pantoprazole twice daily for 6 weeks. Continue with pantoprazole 40 mg daily after 6 weeks. Replete electrolytes as needed. Patient has agreed to be discharged to SNF for additional physical therapy. Anticipate discharge next 24 hours. Exam Vital Signs Temp Pulse Resp BP Pulse Ox O2 Del Method O2 Flow Rate 98.4 F 97 12 132/93 H 99 Room Air 3 09/14/24 12:05 09/14/24 12:05 09/14/24 12:05 09/14/24 12:05 09/14/24 12:05 09/14/24 12:05 09/13/24 20:29 FiO2 55 09/12/24 01:27 Narrative Exam General: elderly lady, Awake and in no acute distress. HEENT: Normocephalic, atraumatic, mucous membranes dry. Heart: Regular rate and rhythm, no murmurs. Lungs: Clear to auscultation with no wheezing or crackles. Abdomen: Soft, nondistended, nontender, positive bowel sounds. ?No guarding or rebound tenderness. Neurologic: Alert and oriented x3, general weakness, Aox3 Extremities: No edema. Skin: No rash or ecchymoses. Dry skin. Objective Labs 09/14/24 04:10 09/14/24 04:10 Labs: Laboratory Results - last 24 hr 09/14/24 04:10 WBC 7.8 RBC 3.61 L Hgb 12.9 Hct 34.7 L MCV 96 MCH 35.7 H MCHC 37.2 H RDW Std Deviation 45.4 Plt Count 209 Neut % (Auto) 57 Lymph % (Auto) 35 Mitchell % (Auto) 8 Eos % (Auto) 0 Baso % (Auto) 0 Neut # (Auto) 4.4 Lymph # (Auto) 2.7 Mitchell # (Auto) 0.6 Eos # (Auto) 0.0 Baso # (Auto) 0.0 Immature Gran # (Auto) 0.02 H Absolute Nucleated RBC 0.00 Immature Gran % 0 Nucleated RBC % 0 Sodium 134 L Potassium 3.0 L D Chloride 96 L Carbon Dioxide 25.4 Anion Gap 13 BUN 11 Creatinine 1.4 H Estim Creat Clear Calc 28.2 L eGFR 42 L BUN/Creatinine Ratio 8 L Glucose 81 Calculated Osmolality 266 L Calcium 8.6 Corrected Calcium 8.6 Total Bilirubin 0.8 AST 111 H ALT 43 Alkaline Phosphatase 105 Total Protein 7.0 Albumin 4.3 Globulin 2.7 Albumin/Globulin Ratio 1.6 Quality Measures Quality Measures VTE prophylaxis Advance care planning discussed with:: patient Assessment & Plan Assessment Current Active Medications: Generic Name Dose Route Start Last Admin Trade Name Freq PRN Reason Stop Dose Admin Acetaminophen 650 mg 09/11/24 23:55 Acetaminophen 325 Mg Tablet PO 10/11/24 23:54 Q6H PRN Fever >100.3 or pain 1-3 Amlodipine Besylate 5 mg 09/13/24 16:30 09/14/24 08:35 Amlodipine Besylate 5 Mg Tablet PO 10/13/24 16:29 5 mg QDAY QUINTEN Administration Heparin Sodium (Porcine) 5,000 unit 09/12/24 06:00 09/14/24 05:22 Heparin Sod Inj 5000 Unit/Ml Vial SC 09/26/24 05:59 5,000 unit Q8HR QUINTEN Administration Ceftriaxone Sodium/Dextrose 1 gm in 50 mls @ 100 mls/hr 09/12/24 11:09 09/14/24 09:32 Rocephin/D5w 1gm Iv Premix IV 09/19/24 11:08 100 mls/hr QDAY QUINTEN Administration Potassium Chloride 10 meq in 100 mls @ 100 mls/hr 09/14/24 12:30 09/14/24 12:48 Kcl Ivpb IV 09/14/24 13:29 Not Given Q1H QUINTEN Levetiracetam 500 mg 09/12/24 09:00 09/14/24 08:35 Levetiracetam 250 Mg Tablet PO 10/12/24 08:59 500 mg BID QUINTEN Administration Levothyroxine Sodium 50 mcg 09/12/24 06:00 09/14/24 05:22 Levothyroxine Sodium 25 Mcg Tablet PO 10/12/24 05:59 50 mcg ACBR QUINTEN Administration Ondansetron HCl 4 mg 09/11/24 23:55 09/12/24 12:57 Ondansetron Inj 2 Mg/Ml Inj 2 Ml IV 10/11/24 23:54 4 mg Q6H PRN Administration NAUSEA OR VOMITING Protocol Pantoprazole Sodium 40 mg 09/12/24 12:00 09/14/24 08:35 Pantoprazole 40 Mg Tablet PO 10/12/24 11:59 40 mg QDAY QUINTEN Administration Propranolol HCl 20 mg 09/12/24 01:00 09/13/24 13:12 Propranolol 10 Mg Tablet PO 10/12/24 00:59 20 mg TID QUINTEN Administration Sennosides 1 tab 09/11/24 23:55 Senna Tablet PO 10/11/24 23:54 QDAY PRN constipation Protocol Plan The patient is a 63-year-old female with a previous medical history of hypertension, hyperlipidemia, seizure disorder, thyroid cancer status post thyroidectomy, hypothyroidism who came to the ED due to lower extremity cramps and general weakness. Patient is going to be admitted due to general weakness secondary to hypothyroidism. #Hx intractable nausea, vomiting #Hx gastric ulcers #Unintentional weight loss -Consulted GI Dr. Haney -EGD from 09/13/24 showed esophagitis with gastritis. -Biopsies are pending -start patient on pantoprazole twice daily for 6 weeks. -Continue with pantoprazole 40 mg daily after 6 weeks. #Uncomplicated UTI UA Leukocyte esterase positive, urine WBC 800, bacteria 3+ Urine cultures pending ? Started IV ceftriaxone 1 g daily for 7 days (09/12-) #General weakness #Hypothyroid myopathy #Hypothyroidism #History of thyroid cancer, s/p thyroidectomy Multifactorial weakness due to hypothyroidism, decreased oral intake, and diarrhea for past 2 months. According to the patient she was on levothyroxin previously, but it was discontinued by her PCP for the reasons unknown to the patient. Plan: - levothyroxine 50 mcg daily, adjust dose as needed - Physical therapy: Recommend that patient go to SNF as she is high fall risk. -Gabapentin 300mg x1 tonight -Gabapenting 300mg BID starting 09/15 #Elevated creatinine kinase Creatine kinase 925, most likely in the setting of hypothyroidism. Plan: - monitor daily CBC #CKD stage III Most likely in the setting of longstanding hypertension Plan: - monitor CBC - BP control #Seizure disorder Stable Plan: - resumed home Keppra #Hypertension Patient reports taking propranolol at home, on charting she has filled prescription for propranolol 60mg. Plan: -- propranolol 20 mg TID held #Hyponatremia Moderate hyponatremia. Not symptomatic. Plan: - monitor CMP - encourage oral intake Health maintenance: FEN: cardiac DVT prophylaxis: heparin sc GI prophylaxis: none Dispo: med surg CODE STATUS: Full code The patient's management plan was discussed with my attending physician Dr. Zamarripa. Quita Villasenor, PGY-1
--- NOTE | 2024-09-14 13:52 | PC.SS ---
SS met with pt to follow up with choices to SNF. Pt is aware she has been accepted, [place], [facility], [facility], [facility] [place]. Patient's choice is [facility]. 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
--- NOTE | 2024-09-14 15:02 | ESDS_ITS ---
Planned Discharge Date 09/14/24 DS: Providers Provider Date of admission: 09/11/24 23:56 Primary care physician: Beatrice Cool PA-C Admitting Provider: Mac Hook MD Attending Provider on Admission: Cem Zamarripa MD Consults: 09/12/24 01:10 Referral Physical Therapy Routine Comment: Physician Instructions: 09/12/24 08:00 Referral Physical Therapy Routine Comment: Physician Instructions: 09/12/24 17:28 Consult to Gastroenterology Routine Comment: weight loss, hx of gastric ulcers Consulting Provider: Joshua Haney 09/13/24 11:38 Consult to Nephrology Routine Comment: NERY Consulting Provider: Lalit Cobb Attending Provider on DC: Cem Zamarripa MD Discharging Provider: Cem Zamarripa MD DS: Diagnosis Problem List Completed Was Problem List Reviewed/Reconciled?: Yes Hospital Course Hospital Course Hospital course: Reason for hospitalization: Generalized weakness, UTI The patient is a 63-year-old female with a previous medical history of hypertension, hyperlipidemia, seizure disorder, osteoporosis, thyroid cancer status post thyroidectomy, hypothyroidism who came to [facility] ED on 09/12/24 due to lower extremity cramps and general weakness. She also reports that she has been having diarrhea for 2 months and nausea vomiting. Son at the bedside, reports that she became more slow, started to use cane for walking, patient also reports her voice has became coarse as if she has a cold'. UA was positive for UTI, CK 925, U tox is positive for benzodiazepines and marijuana. Patient was admitted for management of generalized weakness hypothyroidism, workup of nausea vomiting. GI Dr. Haney was consulted and patient underwent EGD on 09/13. Reports indicating esophagitis with gastritis and hemorrhage. Gastric biopsies are pending. She was started on pantoprazole 40 twice daily. Patient stated that cramps were well-controlled with gabapentin initiated during hospitalization. Electrolytes were repleted as needed and NERY resolved with fluids. TSH returned greater than 150. She was resumed on levothyroxine at 50 mcg, stating that she does not recall the reason why her PCP has previously stopped the medication. Encouraged to repeat labs in the next 4-6 weeks. Urine cultures grew strep agalactiae. Patient was started on IV Rocephin and discharged with Keflex 500 mg 4 times daily for 5 days. Patient is now in stable condition and ready for discharge to SNF where she will receive more physical therapy. Recommendations were given as below. Discharge Recommendations: Continue amlodipine 5 mg daily, hold propranolol until follow-up with primary care physician Continue Keflex every 6 hours for 5 days to complete the course of antibiotic treatment for urinary tract infection Continue gabapentin 300 mg twice daily, changed to once daily if unable to tolerate dose Continue Keppra 500 mg twice daily home dose Started on levothyroxine 50 mcg every morning, follow-up with primary care physician and uptitrate as needed Continue pantoprazole 40 mg twice daily for 6 weeks then once a day. Hold atorvastatin, recheck LFTs and resume as needed Follow-up with primary care physician in 1 week. Return to ED if symptoms return or worsen. Hospital Diagnoses: #Hx intractable nausea, vomiting #Hx gastric ulcers #Unintentional weight loss #Uncomplicated UTI #NERY #General weakness #Hypothyroid myopathy #Hypothyroidism #History of thyroid cancer, s/p thyroidectomy #Elevated creatinine kinase #CKD stage III #Seizure disorder #Hypertension #Hyponatremia The patient's management plan was discussed with my attending physician Dr. Zamarripa. Quita Villasenor MD, PGY-1 Time spent discussing smoking cessation with patient: more than 10 minutes Time Spent with Patient Time attestation: Total time spent providing and/or coordinating discharge services: Time spent: Greater than 30 minutes Exam Vital Signs Temp Pulse Resp BP Pulse Ox O2 Del Method O2 Flow Rate 98.4 F 97 12 132/93 H 99 Room Air 3 09/14/24 12:05 09/14/24 12:05 09/14/24 12:05 09/14/24 12:05 09/14/24 12:05 09/14/24 12:05 09/13/24 20:29 FiO2 55 09/12/24 01:27 Narrative Exam General: elderly lady, Awake and in no acute distress. HEENT: Normocephalic, atraumatic, mucous membranes dry. Heart: Regular rate and rhythm, no murmurs. Lungs: Clear to auscultation with no wheezing or crackles. Abdomen: Soft, nondistended, nontender, positive bowel sounds. ?No guarding or rebound tenderness. Neurologic: Alert and oriented x3, general weakness, Aox3 Extremities: No edema. Skin: No rash or ecchymoses. Dry skin. Discharge Plan Plan Patient Disposition: Xfer Skilled Nsg Fac (SNF) Patient condition on transfer: Stable Prescriptions/Referrals Prescriptions/Med Rec: New amlodipine 5 mg Tablet 5 mg PO QDAY 30 Days Qty: 30 0RF cephalexin 500 mg capsule 500 mg PO Q6H 5 Days Qty: 20 0RF levetiracetam 250 mg Tablet 500 mg PO BID 30 Days Qty: 120 0RF gabapentin 300 mg Capsule 300 mg PO BID 30 Days Qty: 60 0RF levothyroxine 25 mcg Tablet 50 mcg PO ACBR 30 Days Qty: 60 0RF pantoprazole 40 mg Tablet,Delayed Release (Dr/Ec) 40 mg PO BID 30 Days Qty: 60 0RF Continued alprazolam [Xanax] 0.5 mg Tablet 0.5 mg PO BID PRN (Reason: Anxiety) Held atorvastatin 20 mg Tablet 20 mg PO HS Hold Instructions: Resume on 09/21/24. benztropine 1 mg tablet 1 mg PO TID Hold Instructions: Resume on 09/21/24. Per Patient he is not taking Patient Comments: TAKE 1 TABLET BY MOUTH THREE TIMES A DAY Discontinued oxybutynin chloride 10 mg tablet extended release 24hr 10 mg PO QDAY levetiracetam 1,000 mg tablet 1,000 mg PO BID trazodone 50 mg tablet 50 mg PO HS Patient Comments: TAKE 1 TABLET BY MOUTH EVERY NIGHT FOR SLEEP losartan 100 mg tablet 100 mg PO QDAY Patient Comments: TAKE 1 TABLET BY MOUTH IN THE MORNING BEFORE MEAL Caplyta 42 mg capsule 42 mg PO QDAY Patient Comments: TAKE 1 CAPSULE BY MOUTH EVERY DAY levothyroxine 112 mcg tablet 112 mcg PO 1XD ferrous sulfate 325 mg (65 mg iron) tablet 325 mg PO .qod Qty: 30 0RF pantoprazole 40 mg tablet,delayed release (DR/EC) 40 mg PO BID Qty: 60 0RF cephalexin 500 mg capsule 500 mg PO BID Qty: 6 0RF Referrals: Beatrice Cool PA-C [Primary Care Provider] - Patient/Caregiver Discharge Instructions Discharge Activity: activity as tolerated Other Discharge Activity Instructions:: Continue amlodipine 5 mg daily, hold propranolol until follow-up with primary care physician Continue Keflex every 6 hours for 5 days to complete the course of antibiotic treatment for urinary tract infection Continue gabapentin 300 mg twice daily, changed to once daily if unable to tolerate dose Continue Keppra 500 mg twice daily home dose Started on levothyroxine 50 mcg every morning, follow-up with primary care physician and uptitrate as needed Continue pantoprazole 40 mg twice daily for 6 weeks then once a day. Hold atorvastatin, recheck LFTs and resume as needed Follow-up with primary care physician in 1 week. Return to ED if symptoms return or worsen. Education Materials: The Role of the Thyroid Gland, Understanding Urinary Tract ..., ED Hypothyroidism Print Language: Finnish Stand Alone Forms: Bee Award Info., Patient Portal Info Letter Discharge Order Discharge Orders: Discharge (Routine); Ordered 09/14/24 Ordered By: Stephan Benavidez Quality Discharge Quality Measures VTE prophylaxis Attestestation Attestation I reviewed labs, imaging, EKG, home medications and prior available records. Face to face evaluation was performed by me. I have personally examined the patient and discussed assessment and plan with the IM team. I reviewed the resident note and agree with the plan with exceptions as below. Generalized weakness Intractable nausea and vomiting Hyponatremia Acute UTI Marijuana use Uncontrolled hypothyroidism NERY on CKD stage III Generalized weakness is likely multifactorial in the setting of acute UTI, hyponatremia, dehydration, and hypothyroidism Monitor sodium level: Improved. Repeat BMP in 1 week Continue Protonix Consult GI for EGD: Status post EGD that showed esophagitis and gastric bleed Resume home levothyroxine. Repeat thyroid function tests in 4 to 6 weeks Monitor kidney function: Creatinine improved. Encourage oral hydration. Avoid nephrotoxins Started IV ceftriaxone. Follow-up urine culture: Showed E. coli. Will discharge on p.o. Keflex Ordered PT: Recommended SNF. Discussed with medical social worker Time spent is 40 minutes. More than 50% of the time was spent on patient education and coordination of care.
--- NOTE | 2024-09-14 15:26 | PC.NURSE ---
Dr. Marie made aware of BP: 131/93 and HR of 88 no new orders.
--- NOTE | 2024-09-14 15:28 | PC.SS ---
Addendum entered by Angela Cavazos 09/14/24 16:23: SS also provided her with [employer] phone# Original Note: SS spoke to Suri from [employer] they will provide transportation at 5pm. Bedside nurse, Roro is aware. Pt is aware and has [employer] information at bedside. Son, Connor is aware. [facility]
[2024-09-14] MEDS: SENNA TABLET 1 TAB PO (15:38)
--- NOTE | 2024-09-14 16:19 | PC.SS ---
SS received call from Suri at [facility] who states they are ordering a UBER Van to pecan picker pt at 5pm. SS provided Suri with phone# [phone], nurses station to call when transportation is on the way. Bedside nurse, Roro is aware to take pt down stairs when they call. Clarita SALDIVAR is aware.
--- NOTE | 2024-09-14 16:34 | PC.NURSE ---
Report given to Jana at [facility].
== END 2024-09-14 17:17 | disposition skilled nursing facility (03) | DRG 641 ==
LOC: SERX 18:30 → SERHOLD 09-12 00:16 → S3SX 09-12 01:48
PROVIDERS: Nurse Practitioner Family; Specialist; Admitting Provider Internal Medicine; Emergency Provider Emergency Medicine; PCP Physician Assistant; Visit Provider Student in an Organized Health Care Education/Training Program
PROC: 0DB78ZX Excision of Stomach, Pylorus, Via Natural or Artificial Opening Endoscopic, Diagnostic (ICD-10-PCS; CPT 43239; principal; 2024-09-13 16:00)
DX: E87.1 Hypo-osmolality and hyponatremia (principal); N39.0 Urinary tract infection, site not specified; N17.9 Acute kidney failure, unspecified; M62.82 Rhabdomyolysis; N18.30 Chronic kidney disease, stage 3 unspecified; I12.9 Hypertensive chronic kidney disease with stage 1 through stage 4 chronic kidney disease, or unspecified chronic kidney disease; M81.0 Age-related osteoporosis without current pathological fracture; E78.5 Hyperlipidemia, unspecified; G40.909 Epilepsy, unspecified, not intractable, without status epilepticus; E03.9 Hypothyroidism, unspecified; F12.90 Cannabis use, unspecified, uncomplicated; R79.89 Other specified abnormal findings of blood chemistry; E86.0 Dehydration; E89.0 Postprocedural hypothyroidism; E87.8 Other disorders of electrolyte and fluid balance, not elsewhere classified; E87.6 Hypokalemia; Z85.850 Personal history of malignant neoplasm of thyroid; Z79.890 Hormone replacement therapy; Z79.899 Other long term (current) drug therapy; Z91.81 History of falling; Z92.3 Personal history of irradiation; Z92.21 Personal history of antineoplastic chemotherapy; Z87.440 Personal history of urinary (tract) infections; Z85.42 Personal history of malignant neoplasm of other parts of uterus
CPT/HCPCS: 36415; 71045; 80053; 80061; 80307; 81001; 82550; 83690; 83735; 84100; 84439; 84443; 84484; 85025; 87086; 87811; 93005; 96374; 96375; 97162; 99285; J0456; J0696; J1200; J1643; J1885; J2175; J2250; J2270; J2405; J3010; J3480; J7030; J7050; J7120; A9270

== ENCOUNTER → 2024-12-05 | Outpatient (BNVA) | payer MEDICARE, MEDICAID, SELFPAY | END | disposition home or self-care (01) | PROVIDERS: PCP Nurse Practitioner Family; Referring Provider Nurse Practitioner Family; Visit Provider Urology | DX: N32.81 Overactive bladder (principal); I10 Essential (primary) hypertension; E03.9 Hypothyroidism, unspecified; Z85.42 Personal history of malignant neoplasm of other parts of uterus; Z92.3 Personal history of irradiation; E78.00 Pure hypercholesterolemia, unspecified; I48.91 Unspecified atrial fibrillation | CPT/HCPCS: 81003; 99212; G0463 ==

== ENCOUNTER 2025-02-07 10:00 | Day surgery (SDC) | payer MEDICARE, MEDICAID, SELFPAY ==
[2025-02-06 11:39] VITALS: BMI 19.7
[2025-02-06 12:53] LABS: Alanine Aminotransferase 36 U/L (10-49); Albumin, Serum 5.0 gm/dL (3.4-4.8); Albumin/Globulin Ratio 1.9 (1.2-2.2); Alkaline Phosphatase 106 U/L (46-116); Anion Gap 12 (7-16); Aspartate Amino Transferase 51 U/L (0-34); BUN/Creatinine Ratio 8 Ratio (12-20); Bilirubin,Total 0.6 mg/dL (0.3-1.2); Blood Urea Nitrogen 10 mg/dL (9-23); Calcium 10.0 mg/dL (8.3-10.6); Calcium (Corrected) 10.0 mg/dL (8.5-10.1); Carbon Dioxide 28.9 mMol/L (20.0-31.0); Chloride 94 mMol/L (98-107); Creatinine (Component) 1.3 mg/dL (0.6-1.3); Estimated Creatinine Clearance 31.0 mL/min (>60); Globulin 2.7 gm/dL (2.3-3.5); Glucose 80 mg/dL (74-106); Osmolality,Calculated 268 (275-295); Potassium 3.7 mMol/L (3.4-5.1); Sodium 135 mMol/L (136-145); Total Protein 7.7 gm/dL (5.7-8.2); eGFR 46 See Note
[2025-02-07] VITALS (13 sets, daily range): BP systolic 132–179; BP diastolic 94–111; PULSE 54–75; RESP 12–16; TEMP 36.7–37.2; O2SAT 96–100; BMI 19.5
--- NOTE | 2025-02-07 10:44 | CHAP ---
Visited briefly with patient giving comfort and prayer.
[2025-02-07] MEDS: RINGERS LACTATED 1000 ML 1,000 ML 20 ML IV (10:58)
--- NOTE | 2025-02-07 12:00 | XR_ITS ---
Examination: Bilateral retrograde pyelogram with without KUB AP abdomen 3 views Fluoroscopy Date and time: February 07, 2025 1333 hours INDICATIONS: History urinary incontinence moderate bilateral hydronephrosis on CT stone study July 18, 2023, significant scar formation right hydronephrosis on renal sonogram December 08, 2023 TECHNIQUE AND FINDINGS: 3 spot fluoroscopic abdomen films obtained Opacification of right and left calyces Ureteral stents appear in satisfactory position Fluoroscopy 72.5 seconds radiation dose 11.84 milligray IMPRESSION: Bilateral retrograde pyelogram as above
[2025-02-07] MEDS: hydrALAZINE INJ 20 MG/ML VIAL 5 MG IVP (14:54)
--- NOTE | 2025-02-07 14:59 | SUR.PHASEI ---
1414: Pt received in [facility] via gurney. Report from Keo JJ and Lyle POPE. Pt obtunded. Oral airway in place. Resp even, unlabored. BP elevated but is within pre-op baseline. Was reported pt did not take her BP medication this morning. 1420: Oral airway dc'd. Resp even, unlabored. No c/o pain. 1444: Pt resting with no complaints voiced. Resp even, unlabored. BP remains elevated. Other VS stable. Will notify anesthesia.
--- NOTE | 2025-02-07 15:04 | SUR.PHASEII ---
1454: Received new order from anesthesia. Hydralazine given at this time per order.
--- NOTE | 2025-02-07 15:33 | ESOP_ITS ---
Date of Procedure 02/07/25 Pre Op Diagnosis Bilateral hydronephrosis, urinary retention, history of 1 episode of gross hematuria Post Op Diagnosis Trabeculated bladder, bilateral hydro nephrosis tortuous ureter right side Procedure Cystoscopic examination, bilateral pyelogram, bilateral ureteroscopy placement of bilateral ureteral stents under fluoroscopic examination Findings Bilateral hydronephrosis, tortuous ureter right side Procedure Description Indication for procedure this is a 64-year-old female this patient was admitted in the hospital she has bilateral hydroureteronephrosis she also had a urinary retention. Patient had 1 episode of gross hematuria. CAT scan was done and this was reviewed by me this revealed bilateral hydronephrosis and no solid mass was identified she was recommended above procedure procedure and complications were discussed with patient in great detail informed consent is obtained Patient was brought to the operating room in a satisfactory condition after appropriate premedication was put on the operating table in a spine position she was appropriately identified by surgeon and operating room staff side scope and indication of the procedure were reconfirmed with the patient. General anesthesia was given uneventfully patient was positioned in a dorsal lithotomy position parts were prepped and draped in usual sterile fashion. At this time patient received perioperative antibiotics and she received 20 mg of Lasix for diuresis and prevention of infectious reflux complications. 21 cystoscope was used to do the cystourethroscopy examination of the bladder and all the quadrant was carried out there were changes of cystitis. Both ureteral orifice were visualized there was no blood coming out of each ureteral orifice there was a clear urine coming out. Next on the left side I passed a open-ended Pollick catheter through the catheter I placed a safety wire into the upper pole calyx retrograde pyelogram revealed left hydronephrosis. Ureteroscopic examination was done by using semirigid ureteroscope there was no stone identified. Next I passed the open-ended Pollick catheter into the right ureteral orifice. Through the open-ended Pollick catheter I placed a safety wire. The ureter was tortuous in the end I was able to place the wire into the upper pole calyx retrograde pyelogram revealed hydronephrosis. Ureteroscopy by using semirigid ureteroscope revealed no stone or stricture. Next instrument was withdrawn gently over the safety wire I placed a 22 cm long 6 Slovenian double-J stent on both sides proximal and was in the renal pelvis distally in the bladder next bladder was emptied patient after having tolerated the procedure well was sent to recovery room in a satisfactory condition to be followed in urology office in 2 weeks time. Patient disposition she will have removal of both ureteral stents in 2 weeks time following that she is going to need MAG3 renal scan with Lasix end of dictation Anesthesia GETA Pathology / specimen None Estimated Blood Loss 5 Condition Stable Surgeon Paris Muller MD Surgical Staff Operation Date: 02/07/25 12:00 Case Staff Anesthesiologist: Dank Stephen
--- NOTE | 2025-02-07 16:12 | SUR.PHASEII ---
1515: BP coming down. Pt resting with no complaints voiced. Denies pain. Pt sitting up tolerating po fluids with no difficulty swallowing and no n/v. 1545: Pt fully awake, oriented x3. BP remains stable. Pt assisted to restroom. Ambulation steady. Pt dressed and in transport chair. Awaiting transportation.
--- NOTE | 2025-02-07 16:34 | SUR.PHASEII ---
1634: Pt and son stated understanding of discharge instructions. Pt also instructed to berry picker her prescription at [facility]. Pt discharged from [facility] in stable condition.
== END 2025-02-07 16:34 | disposition home or self-care (01) ==
PROVIDERS: Anesthesiology; PCP Student in an Organized Health Care Education/Training Program; Referring Provider Urology; Visit Provider Urology
PROC: 0TJB8ZZ Inspection of Bladder, Via Natural or Artificial Opening Endoscopic (ICD-10-PCS; CPT 52000; principal; 2025-02-07 11:45)
DX: N13.6 Pyonephrosis (principal); N13.8 Other obstructive and reflux uropathy; N32.89 Other specified disorders of bladder; I10 Essential (primary) hypertension; E03.9 Hypothyroidism, unspecified
CPT/HCPCS: 52351; 52332; 36415; 74420; 80053; 87086; A4217; A4649; C1769; C1894; C2617; J0131; J0360; J1100; J1580; J1938; J2371; J2405; J2704; J3010; J3373; J3490; J7120; J1596

== ENCOUNTER → 2025-02-22 | Outpatient (BNVA) | payer MEDICARE, MEDICAID, SELFPAY | END | disposition home or self-care (01) | PROVIDERS: PCP Student in an Organized Health Care Education/Training Program; Referring Provider Student in an Organized Health Care Education/Training Program; Visit Provider Urology | DX: N32.89 Other specified disorders of bladder (principal); Z96.0 Presence of urogenital implants; I10 Essential (primary) hypertension; E78.00 Pure hypercholesterolemia, unspecified; Z86.73 Personal history of transient ischemic attack (TIA), and cerebral infarction without residual deficits; E03.9 Hypothyroidism, unspecified | CPT/HCPCS: 52310; 81003; 96372; A4217; A4649; C1894; J1580; A9270 ==